=== PATIENT | female | born 1945 | race American Indian/Alaskan Native ===

== ENCOUNTER 2020-05-26 14:53 | Inpatient (IN) | payer MEDICARE ==
[2020-05-26] MEDS ORDERED: MELATONIN 5 MG TAB PO PRN (15:59)
[2020-05-26 21:08] LABS: Basophils % (Auto) 0.2 % (0.0-1.8); Hematocrit 43.4 % (30.3-42.9); Hemoglobin 15.1 gm/dl (10.1-14.3); Lymphocytes # (Auto) 2.5 K/mm3 (1.2-5.4); Lymphocytes % (Auto) 31.4 % (13.4-35.0); Mean Corpuscular HGB Conc 35 % (30-34); Mean Corpuscular Volume 93 fl (79-97); Monocytes # (Auto) 0.5 K/mm3 (0.0-0.8); Monocytes % (Auto) 6.3 % (0.0-7.3); Platelet Count 278 K/mm3 (140-440); Red Blood Count 4.67 M/mm3 (3.65-5.03); Red Cell Distribution Width 13.3 % (13.2-15.2)
[2020-05-26] MEDS: traZODone 50 MG TAB PO SCH (21:25)
[2020-05-26] MEDS: OMEGA-3 FATTY ACIDS/FISH OIL 1 GRAM CAP PO SCH ×2 (21:25)
[2020-05-26 21:29] LABS: Alanine Aminotransferase 15 units/L (7-56); Albumin 3.9 g/dL (3.9-5); Blood Urea Nitrogen 10 mg/dL (7-17); Calcium 9.6 mg/dL (8.4-10.2); Chol/HDL Ratio 2.17 %; HDL Cholesterol 62 mg/dL (40-59); Hemolysis Index 2; LDL Cholesterol,Direct 69 mg/dL (50-130)
[2020-05-26 21:43] LABS: BUN/Creatinine Ratio 17
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
[2020-05-27] MEDS ORDERED: ALPRAZOLAM 0.25 MG PO PRN (07:41)
[2020-05-27] MEDS ORDERED: DONEPEZIL HCL 10 MG PO SCH (10:00)
[2020-05-27] MEDS ORDERED: ALPRAZolam 0.25 MG TAB PO PRN (10:00)
[2020-05-27] MEDS ORDERED: MEMANTINE HCL 10 MG PO SCH (10:00)
[2020-05-27] MEDS ORDERED: FERROUS SULFATE 324 MG PO SCH (10:00)
[2020-05-27] MEDS ORDERED: LEVOTHYROXINE SODIUM 50 MCG PO SCH (10:00)
[2020-05-27] MEDS ORDERED: NON-FORMULARY EACH (Escitalopram 10 MG) PO SCH (10:00)
[2020-05-27] MEDS ORDERED: DEPAKOTE 250 MG PO SCH (10:00)
[2020-05-27] MEDS ORDERED: NON-FORMULARY EACH (Losartan Potassium 50 MG) PO SCH (10:00)
[2020-05-27] MEDS ORDERED: GLYBURIDE PO SCH (10:00)
[2020-05-27] MEDS: LOSARTAN 50 MG TAB PO SCH (11:05)
[2020-05-27] MEDS: OMEGA-3 FATTY ACIDS/FISH OIL 1 GRAM CAP PO SCH ×2 (11:06→21:12)
[2020-05-27] MEDS: MEMANTINE 10 MG TAB PO SCH ×2 (11:06→21:14)
[2020-05-27] MEDS: FERROUS SULFATE 325 MG TAB PO SCH (11:06)
[2020-05-27] MEDS: DIVALPROEX DR 250 MG TAB PO SCH ×2 (11:06→21:13)
[2020-05-27] MEDS: LEVOTHYROXINE 50 MCG TAB PO SCH (11:09)
[2020-05-27] MEDS ORDERED: ESCITALOPRAM 10 MG TAB PO SCH (12:00)
[2020-05-27] MEDS: QUEtiapine 25 MG TAB PO SCH ×2 (12:15→21:14)
[2020-05-27] MEDS: DONEPEZIL 10 MG TAB PO SCH (12:24)
[2020-05-27] MEDS ORDERED: glyBURIDE 5 MG TAB PO ONE (12:30)
--- NOTE | 2020-05-27 16:11 | Consultation ---
History of Present Illness - Reason for Consult Consult date: 05/27/20 Medical management Requesting physician: PEYTON HUITRON - History of Present Illness This 74-year-old female with vascular dementia, DM, HTN, hypothyroidism, HLD who was admitted to [facility] psych from [facility] for dementia with behavioral disturbances. We were consulted for medical management during inpatient stay. Patient denies any chest pain, fevers, hemoptysis, fatigue, re cent weight loss, shortness of breath, night sweats, exposure to any sick contacts or known exposure to COVID-19. Past History Past Medical History: diabetes, hypertension, hyperlipidemia, hypothyroidism, other (Vascular dementia) Social history: full code. denies: smoking, alcohol abuse, prescription drug abuse, IV drug use Family history: hypertension Medications and Allergies Allergies Allergy/AdvReac Type Severity Reaction Status Date / Time No Known Drug Allergies Allergy Unknown Verified 05/26/20 21:18 Home Medications Medication Instructions Recorded Confirmed Last Taken Type ALPRAZolam 0.25 mg PO BID PRN 05/27/20 05/27/20 Unknown History Aleve 220 mg PO PRN PRN 05/27/20 05/27/[address] 150 mg PO BID 05/27/20 05/27/20 Unknown History Donepezil HCl 10 mg PO DAILY 05/27/20 05/27/20 Unknown History Escitalopram 10 mg PO DAILY 05/27/20 05/27/20 Unknown History Ferrous Sulfate 324 MG 324 mg PO DAILY 05/27/20 05/27/20 Unknown History Glyburide 10 mg PO BID 05/27/20 05/27/20 Unknown History Insulin Glargine [Lantus VIAL] 8 unit SQ HS 05/27/20 05/27/20 Unknown History Levothyroxine Sodium 75 mcg PO DAILY 05/27/20 05/27/20 Unknown History Losartan Potassium 50 mg PO DAILY 05/27/20 05/27/20 Unknown History Memantine HCl 10 mg PO BID 05/27/20 05/27/20 Unknown History Mirtazapine 7.5 mg PO HS 05/27/20 05/27/20 Unknown History Multivitamin 1 tab PO DAILY 05/27/20 05/27/20 Unknown History Pravastatin Sodium 20 mg PO QHS 05/27/20 05/27/20 Unknown History Active Meds: Active Medications Alprazolam (Xanax) 0.25 mg PO BID PRN PRN Reason: Anxiety Divalproex Sodium (Depakote Dr) 250 mg PO BID [facility] Last Admin: 05/27/20 11:06 Dose: 250 mg Documented by: Donepezil HCl (Aricept) 10 mg PO DAILY [facility] Last Admin: 05/27/20 12:24 Dose: 10 mg Documented by: Ferrous Sulfate (Feosol) 325 mg PO DAILY [facility] Last Admin: 05/27/20 11:06 Dose: 325 mg Documented by: Fish Oil (Fish Oil) 2,000 mg PO BID [facility] Last Admin: 05/27/20 11:06 Dose: 2,000 mg Documented by: Glyburide (Diabeta) 10 mg PO BIDDIAB [facility] Insulin Glargine (Lantus) 8 units SUB-Q HS [facility] Levothyroxine Sodium (Synthroid) 50 mcg PO DAILY@0600 [facility] Last Admin: 05/27/20 11:09 Dose: 50 mcg Documented by: Losartan Potassium (Cozaar) 50 mg PO QDAY [facility] Last Admin: 05/27/20 11:05 Dose: 50 mg Documented by: Melatonin (Melatonin) 5 mg PO QHS PRN PRN Reason: Sleep Last Admin: 05/26/20 21:25 Dose: 5 mg Documented by: Memantine (Memantine) 10 mg PO Q12HR [facility] Last Admin: 05/27/20 11:06 Dose: 10 mg Documented by: Miscellaneous Medication (Pravastatin Sodium) 20 mg PO QHS [facility] Miscellaneous Medication (Multivitamin) 1 tab PO DAILY [facility] Quetiapine Fumarate (Seroquel) 50 mg PO BID [facility] Last Admin: 05/27/20 12:15 Dose: 50 mg Documented by: Trazodone HCl (Desyrel) 50 mg PO QHS [facility] Last Admin: 05/26/20 21:25 Dose: 50 mg Documented by: Review of Systems Constitutional: no weight loss, no weight gain, no fever, no chills, no sweats, no night sweats, no anorexia, no fatigue, no weakness Ears, nose, mouth and throat: decreased hearing, no ear pain, no ear discharge, no tinnitis, no nose pain, no nasal congestion, no nasal discharge, no sinus pressure, no sinus pain, no epistaxis, no post-nasal drip, no headache Cardiovascular: high blood pressure, no chest pain, no orthopnea, no palpitations, no rapid/irregular heart beat, no edema, no syncope, no lightheadedness, no shortness of breath, no leg edema Respiratory: no cough, no cough with sputum, no excessive sputum, no hemoptysis, no shortness of breath, no dyspnea on exertion, no congestion Gastrointestinal: no abdominal pain, no nausea, no vomiting, no diarrhea, no constipation, no change in bowel habits, no hematemesis, no BRBPR, no hematochezia Genitourinary Female: no dyspareunia, no pelvic pain, no flank pain Menstruation: postmenopausal Rectal: no pain, no incontinence Musculoskeletal: no neck stiffness, no neck pain, no shooting arm pain, no arm numbness/tingling, no low back pain, no shooting leg pain, no leg numbness/t ingling, no redness of joints Integumentary: no rash, no pruritis, no sores, no wounds Neurological: no head injury, no transient paralysis, no paralysis, no weakness, no parathesias, no numbness, no tingling, no seizures, no vertigo, no headaches Psychiatric: no anxiety, no memory loss, no sleep disturbances, no disorienta tion, no confusion Endocrine: no cold intolerance, no heat intolerance, no excessive thirst, no polydipsia, no high blood sugars, no low blood sugars Hematologic/Lymphatic: no easy bruising, no easy bleeding, no lymphadenopathy Allergic/Immunologic: no urticaria, no seasonal allergies Exam - Constitutional Vitals: Temp Pulse Resp BP Pulse Ox 98.8 F 78 18 116/65 96 05/27/20 09:03 05/27/20 11:05 05/27/20 09:03 05/27/20 11:05 05/27/20 09:03 General appearance: Present: no acute distress - EENT ENT: hearing decreased - Neck Neck: Present: normal ROM - Respiratory Respiratory effort: normal Respiratory: bilateral: CTA - Cardiovascular Rhythm: regular Heart Sounds: Present: S1 & S2. Absent: systolic murmur, diastolic murmur - Extremities Extremities: no ischemia, pulses intact, pulses symmetrical, No edema, normal temperature, normal color Peripheral Pulses: within normal limits - Abdominal General gastrointestinal: Present: soft, non-tender, normal bowel sounds - Integumentary Integumentary: Present: clear, warm, dry - Musculoskeletal Musculoskeletal: strength equal bilaterally - Psychiatric Psychiatric: cooperative - Neurologic Neurologic: CNII-XII intact, no focal deficits, no gait normal (Uses wheelchair) Results - Labs CBC & Chem 7: 05/26/20 20:52 05/26/20 20:52 Labs: Abnormal lab results 05/26/20 05/26/20 05/26/20 Range/Units 20:52 20:52 20:52 Hgb 15.1 H (10.1-14.3) gm/dl Hct 43.4 H (30.3-42.9) % MCHC 35 H (30-34) % Chloride 97.6 L (98-107) mmol/L Glucose 166 H (65-100) mg/dL POC Glucose (70-105) Hemoglobin A1c 8.1 H (4-6) % Alkaline Phosphatase 142 H (35-129) units/L HDL Cholesterol 62 H (40-59) mg/dL 05/26/20 05/27/20 05/27/20 Range/Units 21:29 06:40 11:53 Hgb (10.1-14.3) gm/dl Hct (30.3-42.9) % MCHC (30-34) % Chloride (98-107) mmol/L Glucose (65-100) mg/dL POC Glucose 165 H 152 H 186 H (70-105) Hemoglobin A1c (4-6) % Alkaline Phosphatase (35-129) units/L HDL Cholesterol (40-59) mg/dL 05/27/20 Range/Units 16:21 Hgb (10.1-14.3) gm/dl Hct (30.3-42.9) % MCHC (30-34) % Chloride (98-107) mmol/L Glucose (65-100) mg/dL POC Glucose 156 H (70-105) Hemoglobin A1c (4-6) % Alkaline Phosphatase (35-129) units/L HDL Cholesterol (40-59) mg/dL Assessment and Plan - Patient Problems (1) Dementia with behavioral disturbance Current Visit: Yes Status: Acute Qualifiers: Dementia type: vascular dementia Qualified Code(s): F01.51 - Vascular dementia with behavioral disturbance Plan to address problem: - Management per primary (2) Hypothyroidism Current Visit: Yes Status: Chronic Plan to address problem: - Resume home Synthroid - 05/26 TSH 3.4 (3) HLD (hyperlipidemia) Current Visit: Yes Status: Chronic Plan to address problem: - Resumed home statin - 05/26 lipid panel: Triglyceride 81, cholesterol 135, LDL 61, HDL 62 (4) HTN (hypertension) Current Visit: Yes Status: Chronic Plan to address problem: - Resumed home Cozaar - Blood pressure monitoring per protocol - Labetalol PRN (5) Diabetes Current Visit: Yes Status: Chronic Plan to address problem: -05/26 hemoglobin A1c 8.1 - SSI - Accu-Cheks AC at bedtime - Hypoglycemia protocol (6) DVT prophylaxis Current Visit: Yes Status: Acute Plan to address problem: - SCDs to BLE while in bed
[2020-05-27] MEDS: glyBURIDE 5 MG TAB PO SCH (18:04)
[2020-05-27] MEDS: traZODone 50 MG TAB PO SCH (21:13)
[2020-05-27] MEDS: PRAVASTATIN 20 MG TAB PO SCH (21:27)
[2020-05-27] MEDS: INSULIN GLARGINE 100 UNITS/ML SUB-Q SCH (21:44)
[2020-05-27] MEDS ORDERED: PRAVASTATIN SODIUM 20 MG PO SCH (22:00)
[2020-05-28] MEDS: LEVOTHYROXINE 50 MCG TAB PO SCH (06:36)
--- NOTE | 2020-05-28 07:46 | Progress Note ---
Subjective Date of service: 05/28/20 Principal diagnosis: Dementia with Behv distrubance Subjective Comment: Psych Nurse Note: 1722 Pt. a/o x 1-2, confused, tearful, delusional thinking that she was in a car accident may have injured someone. Asking the same question over and over. pt. reassured repeatedly. Will continue to monitor. Psych Progress HPI Patient seen this AM, reports shes good, does not remember who I was from yesterday. Patient says she slept good asked why she is refusing meal yesterday evening, pt reports she sometimes does that, also this morning she really doesn't have any appetite but she know she has to eat something. Reason for continuing inpatient: Hx of dementia with disturbances, mood irritablity and in stability. Will increase seroquil to 100mg BID today and continue to observe for tolerance and adverse effects. REVIEW OF SYSTEMS ROS cannot be reliably obtained from the patient due to her confusion and somnolence. MENTAL STATUS EXAMINATION General Appearance and Behavior: Age appropriate, good hygiene, wearing appropriate clothes, good eye contact, cooperative polite with questioning. Cooperation: Participating/engaged Psychomotor Behavior: unremarkable and within normal limits Mood: Good Affect and affective range: congruent with mood Thought Process: Fluent/Logical Thought Content: Poverty Speech: Normal volume, Regular rate and rhythm Intellectual Functioning: Average Suicidal Ideation: n/a Homicidal Ideation: n/a Impulse Control: Impaired Insight and Judgment: Limited insight and judgment Memory: Normal Attention: Normal Orientation: Alert Assessment and Plan - Psychiatric problem (1) Dementia with behavioral disturbance Current Visit: Yes Status: Acute Seroquil dose increase Patient will be admitted for inpatient psychiatric evaluation, medication adjustment and close monitoring The patient's behavior, mood, sleep and appetite will be closely monitored. Patient will be enrolled in individual and group therapeutic sessions and encouraged to attend. Patient will be provided with a safe and structured environment. Patient's physical health needs will be addressed by the Hospitalist. Hospitalist Consulted Labs including CBC, CMP, Lipid profile and Hemoglobin A1C ordered Social Assessment will be completed and the [facility] will work with patient and family to ensure a suitable and safe disposition Medication adjustment will be made as clinically indicated Usual Wellness Yarsanism/Preservation: - Start Trazodone 50 mg po QHS & 50 mg po QHS PRN between 10 PM & 2 AM for insomnia - Start Melatonin 5 mg po QHS to promote circadian rhythm - Start [place]-3 for brain health, reduce impulsivity, and as adjunctive treatment for mood disorder, continue upon discharge given overall benefits. - Start B1 prophylaxis with 200 mg po for 5 days The patient agreed on the treatment plan, understood the risk, benefit, alternative treatment, potential consequence of no treatment, and gave informed consent. Initial Certification Inpatient psych services: I certify that the inpatient psychiatric services are required for treatment that could reasonably be expected to improve the patient's condition. Estimated days: 5 Post hospital care: primary care provider, psychiatric provider Assessment and Plan - Patient Problems (1) Dementia with behavioral disturbance Current Visit: Yes Status: Acute Qualifiers: Dementia type: vascular dementia Qualified Code(s): F01.51 - Vascular dementia with behavioral disturbance Medications and Allergies Allergies Allergy/AdvReac Type Severity Reaction Status Date / Time No Known Drug Allergies Allergy Unknown Verified 05/26/20 21:18 Home Medications Medication Instructions Recorded Confirmed Last Taken Type ALPRAZolam 0.25 mg PO BID PRN 05/27/20 05/27/20 Unknown History Aleve 220 mg PO PRN PRN 05/27/20 05/27/[address] 150 mg PO BID 05/27/20 05/27/20 Unknown History Donepezil HCl 10 mg PO DAILY 05/27/20 05/27/20 Unknown History Escitalopram 10 mg PO DAILY 05/27/20 05/27/20 Unknown History Ferrous Sulfate 324 MG 324 mg PO DAILY 05/27/20 05/27/20 Unknown History Glyburide 10 mg PO BID 05/27/20 05/27/20 Unknown History Insulin Glargine [Lantus VIAL] 8 unit SQ HS 05/27/20 05/27/20 Unknown History Levothyroxine Sodium 75 mcg PO DAILY 05/27/20 05/27/20 Unknown History Losartan Potassium 50 mg PO DAILY 05/27/20 05/27/20 Unknown History Memantine HCl 10 mg PO BID 05/27/20 05/27/20 Unknown History Mirtazapine 7.5 mg PO HS 05/27/20 05/27/20 Unknown History Multivitamin 1 tab PO DAILY 05/27/20 05/27/20 Unknown History Pravastatin Sodium 20 mg PO QHS 05/27/20 05/27/20 Unknown History Active Meds: Active Medications Alprazolam (Xanax) 0.25 mg PO BID PRN PRN Reason: Anxiety Divalproex Sodium (Depakote Dr) 250 mg PO BID [facility] Last Admin: 05/27/20 21:13 Dose: 250 mg Documented by: Donepezil HCl (Aricept) 10 mg PO DAILY [facility] Last Admin: 05/27/20 12:24 Dose: 10 mg Documented by: Ferrous Sulfate (Feosol) 325 mg PO DAILY [facility] Last Admin: 05/27/20 11:06 Dose: 325 mg Documented by: Fish Oil (Fish Oil) 2,000 mg PO BID [facility] Last Admin: 05/27/20 21:12 Dose: 2,000 mg Documented by: Glyburide (Diabeta) 10 mg PO BIDDIAB [facility] Last Admin: 05/27/20 18:04 Dose: 10 mg Documented by: Insulin Glargine (Lantus) 8 units SUB-Q HS [facility] Last Admin: 05/27/20 21:44 Dose: 8 units Documented by: Levothyroxine Sodium (Synthroid) 50 mcg PO DAILY@0600 [facility] Last Admin: 05/28/20 06:36 Dose: 50 mcg Documented by: Losartan Potassium (Cozaar) 50 mg PO QDAY [facility] Last Admin: 05/27/20 11:05 Dose: 50 mg Documented by: Melatonin (Melatonin) 5 mg PO QHS PRN PRN Reason: Sleep Last Admin: 05/26/20 21:25 Dose: 5 mg Documented by: Memantine (Memantine) 10 mg PO Q12HR [facility] Last Admin: 05/27/20 21:14 Dose: 10 mg Documented by: Multivitamins (Theragran Tab) 1 each PO DAILY [facility] Pravastatin Sodium (Pravachol) 20 mg PO QHS [facility] Last Admin: 05/27/20 21:27 Dose: 20 mg Documented by: Quetiapine Fumarate (Seroquel) 50 mg PO BID [facility] Last Admin: 05/27/20 21:14 Dose: 50 mg Documented by: Trazodone HCl (Desyrel) 50 mg PO QHS [facility] Last Admin: 05/27/20 21:13 Dose: 50 mg Documented by: Results - Results Labs/Vitals: Laboratory Last Values WBC 8.0 K/mm3 (4.5-11.0) 05/26/20 20:52 RBC 4.67 M/mm3 (3.65-5.03) 05/26/20 20:52 Hgb 15.1 gm/dl (10.1-14.3) H 05/26/20 20:52 Hct 43.4 % (30.3-42.9) H 05/26/20 20:52 MCV 93 fl (79-97) 05/26/20 20:52 MCH 32 pg (28-32) 05/26/20 20:52 MCHC 35 % (30-34) H 05/26/20 20:52 RDW 13.3 % (13.2-15.2) 05/26/20 20:52 Plt Count 278 K/mm3 (140-440) 05/26/20 20:52 Lymph % (Auto) 31.4 % (13.4-35.0) 05/26/20 20:52 [place] % (Auto) 6.3 % (0.0-7.3) 05/26/20 20:52 Eos % (Auto) 0.0 % (0.0-4.3) 05/26/20 20:52 Baso % (Auto) 0.2 % (0.0-1.8) 05/26/20 20:52 Lymph # 2.5 K/mm3 (1.2-5.4) 05/26/20 20:52 [place] # 0.5 K/mm3 (0.0-0.8) 05/26/20 20:52 Eos # 0.0 K/mm3 (0.0-0.4) 05/26/20 20:52 Baso # 0.0 K/mm3 (0.0-0.1) 05/26/20 20:52 Seg Neutrophils % 62.1 % (40.0-70.0) 05/26/20 20:52 Seg Neutrophils # 5.0 K/mm3 (1.8-7.7) 05/26/20 20:52 Sodium 139 mmol/L (137-145) 05/26/20 20:52 Potassium 3.6 mmol/L (3.6-5.0) 05/26/20 20:52 Chloride 97.6 mmol/L (98-107) L 05/26/20 20:52 Carbon Dioxide 23 mmol/L (22-30) 05/26/20 20:52 Anion Gap 22 mmol/L 05/26/20 20:52 BUN 10 mg/dL (7-17) 05/26/20 20:52 Creatinine 0.6 mg/dL (0.6-1.2) 05/26/20 20:52 Estimated GFR > 60 ml/min 05/26/20 20:52 BUN/Creatinine Ratio 17 % 05/26/20 20:52 Glucose 166 mg/dL (65-100) H 05/26/20 20:52 POC Glucose 104 (70-105) 05/28/20 04:27 Hemoglobin A1c 8.1 % (4-6) H 05/26/20 20:52 Calcium 9.6 mg/dL (8.4-10.2) 05/26/20 20:52 Total Bilirubin 0.60 mg/dL (0.1-1.2) 05/26/20 20:52 AST 27 units/L (5-40) 05/26/20 20:52 ALT 15 units/L (7-56) 05/26/20 20:52 Alkaline Phosphatase 142 units/L (35-129) H 05/26/20 20:52 Total Protein 6.9 g/dL (6.3-8.2) 05/26/20 20:52 Albumin 3.9 g/dL (3.9-5) 05/26/20 20:52 Albumin/Globulin Ratio 1.3 % 05/26/20 20:52 Triglycerides 81 mg/dL (2-149) 05/26/20 20:52 Cholesterol 135 mg/dL (50-199) 05/26/20 20:52 LDL Cholesterol Direct 69 mg/dL (50-130) 05/26/20 20:52 HDL Cholesterol 62 mg/dL (40-59) H 05/26/20 20:52 Cholesterol/HDL Ratio 2.17 % 05/26/20 20:52 TSH 3.470 mlU/mL (0.270-4.200) 05/26/20 20:52 Last Vital Signs Temp 98.5 F 05/27/20 22:00 Pulse 67 05/27/20 22:00 Resp 20 05/27/20 22:00 BP 132/72 05/27/20 22:00 Pulse Ox 95 05/27/20 22:00
[2020-05-28] MEDS ORDERED: QUEtiapine 25 MG TAB PO SCH (08:28)
[2020-05-28] MEDS ORDERED: MULTIVITAMIN PO SCH (10:00)
[2020-05-28] MEDS: glyBURIDE 5 MG TAB PO SCH ×2 (10:55→16:12)
[2020-05-28] MEDS: FERROUS SULFATE 325 MG TAB PO SCH (10:57)
[2020-05-28] MEDS: DIVALPROEX DR 250 MG TAB PO SCH (10:57)
[2020-05-28] MEDS: QUEtiapine 100 MG TAB PO SCH ×2 (10:57→21:01)
[2020-05-28] MEDS: DONEPEZIL 10 MG TAB PO SCH (10:58)
[2020-05-28] MEDS: OMEGA-3 FATTY ACIDS/FISH OIL 1 GRAM CAP PO SCH ×2 (10:58→21:01)
[2020-05-28] MEDS: LOSARTAN 50 MG TAB PO SCH (10:58)
[2020-05-28] MEDS: MEMANTINE 10 MG TAB PO SCH ×2 (10:59→21:01)
[2020-05-28] MEDS: MULTIVITAMINS ,THERAPEUTIC TAB PO SCH (10:59)
[2020-05-28] MEDS: traZODone 50 MG TAB PO SCH (21:01)
[2020-05-28] MEDS: VALPROIC ACID 250 MG/5 ML ORAL LIQD PO SCH (21:01)
[2020-05-28] MEDS: INSULIN GLARGINE 100 UNITS/ML SUB-Q SCH (21:03)
[2020-05-28] MEDS: PRAVASTATIN 20 MG TAB PO SCH (21:03)
[2020-05-29] MEDS: LEVOTHYROXINE 50 MCG TAB PO SCH (06:29)
--- NOTE | 2020-05-29 08:04 | Progress Note ---
Subjective Date of service: 05/29/20 Principal diagnosis: Dementia with Behv distrubance Subjective Comment: Psych Nurse Note: 1705 Pt. irritable, angry, looking for her shoes so she could leave. Staff reassuring pt, with slight relief. Music therapy provided, and pt. is relaxing and she dancing which in the Michelle chair. Will continue to reassure and monitor. Psych Progress HPI Patient seen this AM, in activity room sitting in Michelle chair. Report feeling great this AM, says she is trying to remember me. Patient reports not thinking of doing much today, says she feels happy, and likes dancing. Reason for continuing inpatient: Persistent mood irritability, anger and behv disturbance. Seroquil increased to 100mg BID yesterday and will continue to observe for tolerance and adverse effects. REVIEW OF SYSTEMS ROS cannot be reliably obtained from the patient due to her confusion and somnolence. MENTAL STATUS EXAMINATION General Appearance and Behavior: Age appropriate, good hygiene, wearing appropriate clothes, good eye contact, cooperative polite with questioning. Cooperation: Participating/engaged Psychomotor Behavior: unremarkable and within normal limits Mood: Good Affect and affective range: congruent with mood Thought Process: Fluent/Logical Thought Content: Poverty Speech: Normal volume, Regular rate and rhythm Intellectual Functioning: Average Suicidal Ideation: n/a Homicidal Ideation: n/a Impulse Control: Impaired Insight and Judgment: Limited insight and judgment Memory: Normal Attention: Normal Orientation: Alert Assessment and Plan - Psychiatric problem (1) Dementia with behavioral disturbance Current Visit: Yes Status: Acute Seroquil dose increase Patient will be admitted for inpatient psychiatric evaluation, medication adjustment and close monitoring The patient's behavior, mood, sleep and appetite will be closely monitored. Patient will be enrolled in individual and group therapeutic sessions and encouraged to attend. Patient will be provided with a safe and structured environment. Patient's physical health needs will be addressed by the Hospitalist. Ho spitalist Consulted Labs including CBC, CMP, Lipid profile and Hemoglobin A1C ordered Social Assessment will be completed and the [facility] will work with patient and family to ensure a suitable and safe disposition Medication adjustment will be made as clinically indicated Usual Wellness Episcopal/Preservation: - Start Trazodone 50 mg po QHS & 50 mg po QHS PRN between 10 PM & 2 AM for insomnia - Start Melatonin 5 mg po QHS to promote circadian rhythm - Start [place]-3 for brain health, reduce impulsivity, and as adjunctive treatment for mood disorder, continue upon discharge given overall benefits. - Start B1 prophylaxis with 200 mg po for 5 days The patient agreed on the treatment plan, understood the risk, benefit, alternative treatment, potential consequence of no treatment, and gave informed consent. Initial Certification Inpatient psych services: I certify that the inpatient psychiatric services are required for treatment that could reasonably be expected to improve the patient's condition. Estimated days: 1 Post hospital care: primary care provider, psychiatric provider Assessment and Plan - Patient Problems (1) Dementia with behavioral disturbance Current Visit: Yes Status: Acute Qualifiers: Dementia type: vascular dementia Qualified Code(s): F01.51 - Vascular dementia with behavioral disturbance Medications and Allergies Allergies Allergy/AdvReac Type Severity Reaction Status Date / Time No Known Drug Allergies Allergy Unknown Verified 05/26/20 21:18 Home Medications Medication Instructions Recorded Confirmed Last Taken Type ALPRAZolam 0.25 mg PO BID PRN 05/27/20 05/27/20 Unknown History Aleve 220 mg PO PRN PRN 05/27/20 05/27/[address] 150 mg PO BID 05/27/20 05/27/20 Unknown History Donepezil HCl 10 mg PO DAILY 05/27/20 05/27/20 Unknown History Escitalopram 10 mg PO DAILY 05/27/20 05/27/20 Unknown History Ferrous Sulfate 324 MG 324 mg PO DAILY 05/27/20 05/27/20 Unknown History Glyburide 10 mg PO BID 05/27/20 05/27/20 Unknown History Insulin Glargine [Lantus VIAL] 8 unit SQ 05/27/20 05/27/20 Unknown History Levothyroxine Sodium 75 mcg PO DAILY 05/27/20 05/27/20 Unknown History Losartan Potassium 50 mg PO DAILY 05/27/20 05/27/20 Unknown History Memantine HCl 10 mg PO BID 05/27/20 05/27/20 Unknown History Mirtazapine 7.5 mg PO HS 05/27/20 05/27/20 Unknown History Multivitamin 1 tab PO DAILY 05/27/20 05/27/20 Unknown History Pravastatin Sodium 20 mg PO QHS 05/27/20 05/27/20 Unknown History Active Meds: Active Medications Alprazolam (Xanax) 0.25 mg PO BID PRN PRN Reason: Anxiety Donepezil HCl (Aricept) 10 mg PO DAILY [facility] Last Admin: 05/28/20 10:58 Dose: 10 mg Documented by: Ferrous Sulfate (Feosol) 325 mg PO DAILY [facility] Last Admin: 05/28/20 10:57 Dose: 325 mg Documented by: Fish Oil (Fish Oil) 2,000 mg PO BID [facility] Last Admin: 05/28/20 21:01 Dose: 2,000 mg Documented by: Glyburide (Diabeta) 10 mg PO BIDDIAB [facility] Last Admin: 05/28/20 16:12 Dose: 10 mg Documented by: Insulin Glargine (Lantus) 8 units SUB-Q HS [facility] Last Admin: 05/28/20 21:03 Dose: Not Given Documented by: Levothyroxine Sodium (Synthroid) 50 mcg PO DAILY@0600 [facility] Last Admin: 05/29/20 06:29 Dose: 50 mcg Documented by: Losartan Potassium (Cozaar) 50 mg PO QDAY [facility] Last Admin: 05/28/20 10:58 Dose: 50 mg Documented by: Melatonin (Melatonin) 5 mg PO QHS PRN PRN Reason: Sleep Last Admin: 05/26/20 21:25 Dose: 5 mg Documented by: Memantine (Memantine) 10 mg PO Q12HR [facility] Last Admin: 05/28/20 21:01 Dose: 10 mg Documented by: Multivitamins (Theragran Tab) 1 each PO DAILY [facility] Last Admin: 05/28/20 10:59 Dose: 1 each Documented by: Pravastatin Sodium (Pravachol) 20 mg PO QHS [facility] Last Admin: 05/28/20 21:03 Dose: 20 mg Documented by: Quetiapine Fumarate (Seroquel) 100 mg PO BID [facility] Last Admin: 05/28/20 21:01 Dose: 100 mg Documented by: Trazodone HCl (Desyrel) 50 mg PO QHS [facility] Last Admin: 05/28/20 21:01 Dose: 50 mg Documented by: Valproic Acid (Depakene Liq) 250 mg PO BID [facility] Last Admin: 05/28/20 21:01 Dose: 250 mg Documented by: Results - Results Labs/Vitals: Laboratory Last Values WBC 8.0 K/mm3 (4.5-11.0) 05/26/20 20:52 RBC 4.67 M/mm3 (3.65-5.03) 05/26/20 20:52 Hgb 15.1 gm/dl (10.1-14.3) H 05/26/20 20:52 Hct 43.4 % (30.3-42.9) H 05/26/20 20:52 MCV 93 fl (79-97) 05/26/20 20:52 MCH 32 pg (28-32) 05/26/20 20:52 MCHC 35 % (30-34) H 05/26/20 20:52 RDW 13.3 % (13.2-15.2) 05/26/20 20:52 Plt Count 278 K/mm3 (140-440) 05/26/20 20:52 Lymph % (Auto) 31.4 % (13.4-35.0) 05/26/20 20:52 [place] % (Auto) 6.3 % (0.0-7.3) 05/26/20 20:52 Eos % (Auto) 0.0 % (0.0-4.3) 05/26/20 20:52 Baso % (Auto) 0.2 % (0.0-1.8) 05/26/20 20:52 Lymph # 2.5 K/mm3 (1.2-5.4) 05/26/20 20:52 Sac # 0.5 K/mm3 (0.0-0.8) 05/26/20 20:52 Eos # 0.0 K/mm3 (0.0-0.4) 05/26/20 20:52 Baso # 0.0 K/mm3 (0.0-0.1) 05/26/20 20:52 Seg Neutrophils % 62.1 % (40.0-70.0) 05/26/20 20:52 Seg Neutrophils # 5.0 K/mm3 (1.8-7.7) 05/26/20 20:52 Sodium 139 mmol/L (137-145) 05/26/20 20:52 Potassium 3.6 mmol/L (3.6-5.0) 05/26/20 20:52 Chloride 97.6 mmol/L (98-107) L 05/26/20 20:52 Carbon Dioxide 23 mmol/L (22-30) 09/07/20 20:52 Anion Gap 22 mmol/L 05/26/20 20:52 BUN 10 mg/dL (7-17) 05/26/20 20:52 Creatinine 0.6 mg/dL (0.6-1.2) 05/26/20 20:52 Estimated GFR > 60 ml/min 05/26/20 20:52 BUN/Creatinine Ratio 17 % 05/26/20 20:52 Glucose 166 mg/dL (65-100) H 05/26/20 20:52 POC Glucose 126 (70-105) H 05/29/20 06:29 Hemoglobin A1c 8.1 % (4-6) H 05/26/20 20:52 Calcium 9.6 mg/dL (8.4-10.2) 05/26/20 20:52 Total Bilirubin 0.60 mg/dL (0.1-1.2) 05/26/20 20:52 AST 27 units/L (5-40) 05/26/20 20:52 ALT 15 units/L (7-56) 05/26/20 20:52 Alkaline Phosphatase 142 units/L (35-129) H 05/26/20 20:52 Total Protein 6.9 g/dL (6.3-8.2) 05/26/20 20:52 Albumin 3.9 g/dL (3.9-5) 05/26/20 20:52 Albumin/Globulin Ratio 1.3 % 05/26/20 20:52 Triglycerides 81 mg/dL (2-149) 05/26/20 20:52 Cholesterol 135 mg/dL (50-199) 05/26/20 20:52 LDL Cholesterol Direct 69 mg/dL (50-130) 05/26/20 20:52 HDL Cholesterol 62 mg/dL (40-59) H 05/26/20 20:52 Cholesterol/HDL Ratio 2.17 % 05/26/20 20:52 TSH 3.470 mlU/mL (0.270-4.200) 05/26/20 20:52 Last Vital Signs Temp 97.6 F 05/29/20 07:17 Pulse 65 05/29/20 07:17 Resp 18 05/29/20 07:17 BP 109/58 05/29/20 07:17 Pulse Ox 96 05/29/20 07:17
[2020-05-29] MEDS: MULTIVITAMINS ,THERAPEUTIC TAB PO SCH (09:06)
[2020-05-29] MEDS: QUEtiapine 100 MG TAB PO SCH ×2 (09:06→22:22)
[2020-05-29] MEDS: OMEGA-3 FATTY ACIDS/FISH OIL 1 GRAM CAP PO SCH ×2 (09:06→22:21)
[2020-05-29] MEDS: DONEPEZIL 10 MG TAB PO SCH (09:06)
[2020-05-29] MEDS: LOSARTAN 50 MG TAB PO SCH (09:07)
[2020-05-29] MEDS: glyBURIDE 5 MG TAB PO SCH ×2 (09:07→16:24)
[2020-05-29] MEDS: VALPROIC ACID 250 MG/5 ML ORAL LIQD PO SCH ×2 (09:07→22:21)
[2020-05-29] MEDS: MEMANTINE 10 MG TAB PO SCH ×2 (09:07→22:22)
[2020-05-29] MEDS: FERROUS SULFATE 325 MG TAB PO SCH (09:07)
--- NOTE | 2020-05-29 16:11 | Progress Note ---
Assessment and Plan - Patient Problems (1) Dementia with behavioral disturbance Current Visit: Yes Status: Acute Qualifiers: Dementia type: vascular dementia Qualified Code(s): F01.51 - Vascular dementia with behavioral disturbance Plan to address problem: - Management per primary (2) Hypothyroidism Current Visit: Yes Status: Chronic Plan to address problem: - Resume home Synthroid - 05/26 TSH 3.4 (3) HLD (hyperlipidemia) Current Visit: Yes Status: Chronic Plan to address problem: - Resumed home statin - 05/26 lipid panel: Triglyceride 81, cholesterol 135, LDL 61, HDL 62 (4) HTN (hypertension) Current Visit: Yes Status: Chronic Plan to address problem: - Resumed home Cozaar, dose decreased on 05/29 - Blood pressure monitoring per protocol (5) Diabetes Current Visit: Yes Status: Chronic Plan to address problem: - 05/26 Hbg A1C 8.1 - 05/29 increased Lantus 11 units at bedtime - DiaBeta BID - Accucheck ACHS - Hypoglycemia protocol (6) Malnutrition of moderate degree Current Visit: Yes Status: Acute Plan to address problem: - Will need supplemental feeds and nutrition referral at discharge - Added Nutritional supplement to meals (7) DVT prophylaxis Current Visit: Yes Status: Acute Plan to address problem: - SCDs to BLE while in bed History Interval history: This 74-year-old female with vascular dementia, DM, HTN, hypothyroidism, HLD who was admitted to [facility] for dementia with behavioral disturbances. We were consulted for medical management during inpatient stay. Hypoglycemia noted therefore Lantus increased to 11 units nightly. Continue to monitor and make changes as necessary. Hospitalist Physical - Constitutional Vitals: Temp Pulse Resp BP Pulse Ox 97.6 F 65 18 109/58 96 05/29/20 07:17 05/29/20 09:07 05/29/20 07:17 05/29/20 09:07 05/29/20 07:17 General appearance: Present: no acute distress - EENT Eyes: Present: PERRL ENT: hearing decreased - Neck Neck: Present: supple, normal ROM - Respiratory Respiratory effort: normal Respiratory: bilateral: CTA - Cardiovascular Rhythm: regular Heart Sounds: Present: S1 & S2. Absent: systolic murmur, diastolic murmur - Extremities Extremities: no ischemia, pulses intact, pulses symmetrical, No edema, normal temperature, normal color, Full ROM Peripheral Pulses: within normal limits - Abdominal General gastrointestinal: soft, non-tender, non-distended, normal bowel sounds - Integumentary Integumentary: Present: clear, warm, dry - Psychiatric Psychiatric: cooperative - Neurologic Neurologic: CNII-XII intact, no focal deficits, moves all extremities - Allied Health Allied health notes reviewed: nursing Results - Labs CBC & Chem 7: 05/26/20 20:52 05/26/20 20:52 Labs: Laboratory Last Values WBC 8.0 K/mm3 (4.5-11.0) 05/26/20 20:52 RBC 4.67 M/mm3 (3.65-5.03) 05/26/20 20:52 Hgb 15.1 gm/dl (10.1-14.3) H 05/26/20 20:52 Hct 43.4 % (30.3-42.9) H 05/26/20 20:52 MCV 93 fl (79-97) 05/26/20 20: MCH 32 pg (28-32) 05/26/20 20:52 MCHC 35 % (30-34) H 05/26/20 20:52 RDW 13.3 % (13.2-15.2) 05/26/20 20:52 Plt Count 278 K/mm3 (140-440) 05/26/20 20:52 Lymph % (Auto) 31.4 % (13.4-35.0) 05/26/20 20:52 [place] % (Auto) 6.3 % (0.0-7.3) 05/26/20 20:52 Eos % (Auto) 0.0 % (0.0-4.3) 05/26/20 20:52 Baso % (Auto) 0.2 % (0.0-1.8) 05/26/20 20:52 Lymph # 2.5 K/mm3 (1.2-5.4) 05/26/20 20:52 [place] # 0.5 K/mm3 (0.0-0.8) 05/26/20 20:52 Eos # 0.0 K/mm3 (0.0-0.4) 05/26/20 20:52 Baso # 0.0 K/mm3 (0.0-0.1) 05/26/20 20:52 Seg Neutrophils % 62.1 % (40.0-70.0) 05/26/20 20:52 Seg Neutrophils # 5.0 K/mm3 (1.8-7.7) 05/26/20 20:52 Sodium 139 mmol/L (137-145) 05/26/20 20:52 Potassium 3.6 mmol/L (3.6-5.0) 05/26/20 20:52 Chloride 97.6 mmol/L (98-107) L 05/26/20 20:52 Carbon Dioxide 23 mmol/L (22-30) 05/26/20 20:52 Anion Gap 22 mmol/L 05/26/20 20:52 BUN 10 mg/dL (7-17) 05/26/20 20:52 Creatinine 0.6 mg/dL (0.6-1.2) 05/26/20 20:52 Estimated GFR > 60 ml/min 05/26/20 20:52 BUN/Creatinine Ratio 17 % 05/26/20 20:52 Glucose 166 mg/dL (65-100) H 05/26/20 20:52 POC Glucose 216 (70-105) H 05/29/20 11:41 Hemoglobin A1c 8.1 % (4-6) H 05/26/20 20:52 Calcium 9.6 mg/dL (8.4-10.2) 05/26/20 20:52 Total Bilirubin 0.60 mg/dL (0.1-1.2) 05/26/20 20:52 AST 27 units/L (5-40) 05/26/20 20:52 ALT 15 units/L (7-56) 05/26/20 20:52 Alkaline Phosphatase 142 units/L (35-129) H 05/26/20 20:52 Total Protein 6.9 g/dL (6.3-8.2) 05/26/20 20:52 Albumin 3.9 g/dL (3.9-5) 05/26/20 20:52 Albumin/Globulin Ratio 1.3 % 05/26/20 20:52 Triglycerides 81 mg/dL (2-149) 05/26/20 20:52 Cholesterol 135 mg/dL (50-199) 05/26/20 20:52 LDL Cholesterol Direct 69 mg/dL (50-130) 05/26/20 20:52 HDL Cholesterol 62 mg/dL (40-59) H 05/26/20 20:52 Cholesterol/HDL Ratio 2.17 % 05/26/20 20:52 TSH 3.470 mlU/mL (0.270-4.200) 05/26/20 20:52 Fernandez/IV: Voiding Method Incontinent Active Medications - Current Medications Current Medications: Generic Name Dose Route Start Last Admin Trade Name Freq PRN Reason Stop Dose Admin Alprazolam 0.25 mg 05/27/20 10:00 Xanax PO BID PRN Anxiety Donepezil HCl 10 mg 05/27/20 12:00 05/29/20 09:06 Aricept PO 10 mg DAILY DONAL Administration Ferrous Sulfate 325 mg 05/27/20 10:00 05/29/20 09:07 Feosol PO 325 mg DAILY DONAL Administration Fish Oil 2,000 mg 05/26/20 16:00 05/29/20 09:06 Fish Oil PO 2,000 mg BID DONAL Administration Glyburide 10 mg 05/27/20 17:00 05/29/20 09:07 Diabeta PO 10 mg BIDDIAB [facility]AL Administration Insulin Glargine 11 units 05/29/20 16:11 Lantus SUB-Q HS DONAL Levothyroxine Sodium 50 mcg 05/27/20 09:00 05/29/20 06:29 Synthroid PO 50 mcg DAILY@0600 DONAL Administration Losartan Potassium 50 mg 05/27/20 10:00 05/29/20 09:07 Cozaar PO Not Given QDAY DONAL Melatonin 5 mg 05/26/20 15:59 05/26/20 21:25 Melatonin PO 5 mg QHS PRN Administration Sleep Memantine 10 mg 05/27/20 10:00 05/29/20 09:07 Memantine PO 10 mg Q12HR [facility]AL Administration Multivitamins 1 each 05/28/20 10:00 05/29/20 09:06 Theragran Tab PO 1 each DAILY [facility] Administration Pravastatin Sodium 20 mg 05/27/20 22:00 05/28/20 21:03 Pravachol PO 20 mg QHS [facility]AL Administration Quetiapine Fumarate 100 mg 05/28/20 10:00 05/29/20 09:06 Seroquel PO 100 mg BID [facility]AL Administration Trazodone HCl 50 mg 05/26/20 22:00 05/28/20 21:01 Desyrel PO 50 mg QHS [facility] Administration Valproic Acid 250 mg 05/28/20 22:00 05/29/20 09:07 Depakene Liq PO 250 mg BID [facility]AL Administration
[2020-05-29] MEDS ORDERED: LOSARTAN 50 MG TAB PO SCH (16:14)
[2020-05-29] MEDS: LOSARTAN 25 MG TAB PO SCH (17:15)
[2020-05-29] MEDS: traZODone 50 MG TAB PO SCH (22:22)
[2020-05-29] MEDS: PRAVASTATIN 20 MG TAB PO SCH (22:23)
[2020-05-30] MEDS: INSULIN GLARGINE 100 UNITS/ML SUB-Q SCH ×2 (08:00→21:51)
[2020-05-30] MEDS: OMEGA-3 FATTY ACIDS/FISH OIL 1 GRAM CAP PO SCH ×2 (09:10→21:32)
[2020-05-30] MEDS: LOSARTAN 25 MG TAB PO SCH (09:10)
[2020-05-30] MEDS: MEMANTINE 10 MG TAB PO SCH ×2 (09:10→21:32)
[2020-05-30] MEDS: QUEtiapine 100 MG TAB PO SCH ×2 (09:10→21:32)
[2020-05-30] MEDS: DONEPEZIL 10 MG TAB PO SCH (09:10)
[2020-05-30] MEDS: VALPROIC ACID 250 MG/5 ML ORAL LIQD PO SCH ×3 (09:11→20:35)
[2020-05-30] MEDS: MULTIVITAMINS ,THERAPEUTIC TAB PO SCH (09:11)
[2020-05-30] MEDS: FERROUS SULFATE 325 MG TAB PO SCH (09:11)
[2020-05-30] MEDS: glyBURIDE 5 MG TAB PO SCH ×2 (09:11→16:27)
--- NOTE | 2020-05-30 09:18 | Progress Note ---
Subjective Date of service: 05/30/20 Principal diagnosis: Dementia with Behv distrubance Subjective Comment: The patient's medical record was reviewed and the progress discussed with the nursing staff. The nurse note states the patient was irritable last evening. She was calling the [employer] names and taunting a peer. Patient denies si/hi/ah/vh. At times she tries to stand up and she is too weak. During my interview with the patient today, she is sitting in the dayroom. She is a/o x 1. She is snappy at some of the questions. She denies hallucinations. She also denies SI/HI. The patient describes her mood as okay. Reason for continued inpatient admission: The patient continues to be easily agitated, and aggressive. Will adjust medications and continue to stabilize in order to ensue a safe discharge. REVIEW OF SYSTEMS Constitutional: Negative for weight loss ENT: Negative for stridor Respiratory: Negative for cough or hemoptysis All other systems reviewed and are negative MENTAL STATUS EXAMINATION General Appearance; Dressed appropriately Behavior: Calm and cooperative. Poor eye contact Mood: Depressed and anxious Affect and affective range: sad Thought Process: Fluent/Logical Thought Content: Within reality Speech: Normal volume, Regular rate and rhythm Suicidal Ideation: SI Homicidal Ideation: Denies HI Hallucinations: Denies Delusions: None elicited Insight and Judgment: Limited Memory/Cognition: Normal Attention: Normal Orientation: Alert, oriented Assessment (1) Dementia w/Behavioral Disturbance Current Visit: Yes Status: Acute Treatment Plan Patient will be admitted for inpatient psychiatric evaluation, medication adjustment and close monitoring The patient's behavior, mood, sleep and appetite will be closely monitored. Patient will be enrolled in individual and group therapeutic sessions and encouraged to attend. Patient will be provided with a safe and structured environment. Patient's physical health needs will be addressed by the Hospitalist. Hospitalist Consulted Labs including CBC, CMP, Lipid profile and Hemoglobin A1C ordered Social Assessment will be completed and the Front End Developer will work with patient and family to ensure a suitable and safe disposition Medication adjustment will be made as clinically indicated Increase Depakote 250mg po TID Usual Wellness Jewish/Preservation: - Start Trazodone 50 mg po QHS & 50 mg po QHS PRN between 10 PM & 2 AM for insomnia - Start Melatonin 5 mg po QHS to promote circadian rhythm - Start [place]-3 for brain health, reduce impulsivity, and as adjunctive treatment for mood disorder, continue upon discharge given overall benefits. - Start B1 prophylaxis with 200 mg po for 5 days The patient agreed on the treatment plan, understood the risk, benefit, alternative treatment, potential consequence of no treatment, and gave informed consent. Estimated days: 3 Post hospital care: primary care provider, psychiatric provider Medications and Allergies Allergies Allergy/AdvReac Type Severity Reaction Status Date / Time No Known Drug Allergies Allergy Unknown Verified 05/26/20 21:18 Home Medications Medication Instructions Recorded Confirmed Last Taken Type ALPRAZolam 0.25 mg PO BID PRN 05/27/20 05/27/20 Unknown History Aleve 220 mg PO PRN PRN 05/27/20 05/27/[address] 150 mg PO BID 05/27/20 05/27/20 Unknown History Donepezil HCl 10 mg PO DAILY 05/27/20 05/27/20 Unknown History Escitalopram 10 mg PO DAILY 05/27/20 05/27/20 Unknown History Ferrous Sulfate 324 MG 324 mg PO DAILY 05/27/20 05/27/20 Unknown History Glyburide 10 mg PO BID 05/27/20 05/27/20 Unknown History Insulin Glargine [Lantus VIAL] 8 unit SQ 05/27/20 05/27/20 Unknown History Levothyroxine Sodium 75 mcg PO DAILY 05/27/20 05/27/20 Unknown History Losartan Potassium 50 mg PO DAILY 05/27/20 05/27/20 Unknown History Memantine HCl 10 mg PO BID 05/27/20 05/27/20 Unknown History Mirtazapine 7.5 mg PO HS 05/27/20 05/27/20 Unknown History Multivitamin 1 tab PO DAILY 05/27/20 05/27/20 Unknown History Pravastatin Sodium 20 mg PO QHS 05/27/20 05/27/20 Unknown History Active Meds: Active Medications Alprazolam (Xanax) 0.25 mg PO BID PRN PRN Reason: Anxiety Last Admin: 05/29/20 17:16 Dose: 0.25 mg Documented by: Donepezil HCl (Aricept) 10 mg PO DAILY [facility] Last Admin: 05/29/20 09:06 Dose: 10 mg Documented by: Ferrous Sulfate (Feosol) 325 mg PO DAILY [facility] Last Admin: 05/29/20 09:07 Dose: 325 mg Documented by: Fish Oil (Fish Oil) 2,000 mg PO BID [facility] Last Admin: 05/29/20 22:21 Dose: 2,000 mg Documented by: Glyburide (Diabeta) 10 mg PO BIDDIAB [facility] Last Admin: 05/29/20 16:24 Dose: 10 mg Documented by: Insulin Glargine (Lantus) 11 units SUB-Q HS [facility] Last Admin: 05/30/20 08:00 Dose: Not Given Documented by: Levothyroxine Sodium (Synthroid) 50 mcg PO DAILY@0600 [facility] Last Admin: 05/29/20 06:29 Dose: 50 mcg Documented by: Losartan Potassium (Cozaar) 25 mg PO QDAY [facility] Last Admin: 05/29/20 17:15 Dose: 25 mg Documented by: Melatonin (Melatonin) 5 mg PO QHS PRN PRN Reason: Sleep Last Admin: 05/26/20 21:25 Dose: 5 mg Documented by: Memantine (Memantine) 10 mg PO Q12HR [facility] Last Admin: 05/29/20 22:22 Dose: 10 mg Documented by: Multivitamins (Theragran Tab) 1 each PO DAILY [facility] Last Admin: 05/29/20 09:06 Dose: 1 each Documented by: Pravastatin Sodium (Pravachol) 20 mg PO QHS [facility] Last Admin: 05/29/20 22:23 Dose: 20 mg Documented by: Quetiapine Fumarate (Seroquel) 100 mg PO BID [facility] Last Admin: 05/29/20 22:22 Dose: 100 mg Documented by: Trazodone HCl (Desyrel) 50 mg PO QHS [facility] Last Admin: 05/29/20 22:22 Dose: 50 mg Documented by: Valproic Acid (Depakene Liq) 250 mg PO BID [facility] Last Admin: 05/29/20 22:21 Dose: 250 mg Documented by: Results - Results Labs/Vitals: Laboratory Last Values WBC 8.0 K/mm3 (4.5-11.0) 05/26/20 20:52 RBC 4.67 M/mm3 (3.65-5.03) 05/26/20 20:52 Hgb 15.1 gm/dl (10.1-14.3) H 05/26/20 20:52 Hct 43.4 % (30.3-42.9) H 05/26/20 20:52 MCV 93 fl (79-97) 05/26/20 20:52 MCH 32 pg (28-32) 05/26/20 20:52 MCHC 35 % (30-34) H 05/26/20 20:52 RDW 13.3 % (13.2-15.2) 05/26/20 20:52 Plt Count 278 K/mm3 (140-440) 05/26/20 20:52 Lymph % (Auto) 31.4 % (13.4-35.0) 05/26/20 20:52 [place] % (Auto) 6.3 % (0.0-7.3) 05/26/20 20:52 Eos % (Auto) 0.0 % (0.0-4.3) 05/26/20:52 Baso % (Auto) 0.2 % (0.0-1.8) 05/26/20 20:52 Lymph # 2.5 K/mm3 (1.2-5.4) 05/26/20 20:52 [place] # 0.5 K/mm3 (0.0-0.8) 05/26/20 20:52 Eos # 0.0 K/mm3 (0.0-0.4) 05/26/20 20:52 Baso # 0.0 K/mm3 (0.0-0.1) 05/26/20 20:52 Seg Neutrophils % 62.1 % (40.0-70.0) 05/26/20 20:52 Seg Neutrophils # 5.0 K/mm3 (1.8-7.7) 05/26/20 20:52 Sodium 139 mmol/L (137-145) 05/26/20 20:52 Potassium 3.6 mmol/L (3.6-5.0) 05/26/20 20:52 Chloride 97.6 mmol/L (98-107) L 05/26/20 20:52 Carbon Dioxide 23 mmol/L (22-30) 05/26/20 20:52 Anion Gap 22 mmol/L 05/26/20 20:52 BUN 10 mg/dL (7-17) 05/26/20 20:52 Creatinine 0.6 mg/dL (0.6-1.2) 05/26/20 20:52 Estimated GFR > 60 ml/min 05/26/20 20:52 BUN/Creatinine Ratio 17 % 05/26/20 20:52 Glucose 166 mg/dL (65-100) H 05/26/20 20:52 POC Glucose 114 (70-105) H 05/30/20 07:33 Hemoglobin A1c 8.1 % (4-6) H 05/26/20 20:52 Calcium 9.6 mg/dL (8.4-10.2) 05/26/20 20:52 Total Bilirubin 0.60 mg/dL (0.1-1.2) 05/26/20 20:52 AST 27 units/L (5-40) 05/26/20 20:52 ALT 15 units/L (7-56) 05/26/20 20:52 Alkaline Phosphatase 142 units/L (35-129) H 05/26/20 20:52 Total Protein 6.9 g/dL (6.3-8.2) 05/26/20 20:52 Albumin 3.9 g/dL (3.9-5) 05/26/20 20:52 Albumin/Globulin Ratio 1.3 % 05/26/20 20:52 Triglycerides 81 mg/dL (2-149) 05/26/20 20:52 Cholesterol 135 mg/dL (50-199) 05/26/20 20:52 LDL Cholesterol Direct 69 mg/dL (50-130) 05/26/20 20:52 HDL Cholesterol 62 mg/dL (40-59) H 05/26/20 20:52 Cholesterol/HDL Ratio 2.17 % 05/26/20 20:52 TSH 3.470 mlU/mL (0.270-4.200) 05/26/20 20:52 Valproic Acid 52.6 ug/mL (50-100) 05/29/20 18:52 Last Vital Signs Temp 98.3 F 05/30/20 08:20 Pulse 92 H 05/30/20 08:20 Resp 18 05/30/20 08:20 BP 101/64 05/30/20 08:20 Pulse Ox 97 05/30/20 08:20
[2020-05-30] MEDS: PRAVASTATIN 20 MG TAB PO SCH (21:32)
[2020-05-30] MEDS: traZODone 50 MG TAB PO SCH (21:32)
[2020-05-31] MEDS: LEVOTHYROXINE 50 MCG TAB PO SCH (06:43)
--- NOTE | 2020-05-31 08:21 | Progress Note ---
Subjective Date of service: 05/31/20 Principal diagnosis: Dementia with Behv distrubance Subjective Comment: The patient's medical record was reviewed and the progress discussed with the nursing staff. The nurse note states the patient became agitated when blow molding machine operator was helping her. The patient stated " I've been talking long before you". later, pt stated that she "has to go lay down". and tried to exit the group room. pt was redirected but pt became angry aeb yelling "damn it!". pt sat in the middle of the group room via wheelchair with her back facing staff and peers. During my interview with the patient today, she is lying down. She is asleep but easily arouses. She is confused. She says she feels "fine." The patient denies hallucinations of any kind. She also denies SI/HI Reason for continued inpatient admission: Although improving, the patient continues to have episodes where she is easily agitated. Will adjust medications and continue to stabilize in order to ensue a safe discharge. REVIEW OF SYSTEMS Constitutional: Negative for weight loss ENT: Negative for stridor Respiratory: Negative for cough or hemoptysis All other systems reviewed and are negative MENTAL STATUS EXAMINATION General Appearance; Dressed appropriately Behavior: Calm and cooperative. Poor eye contact Mood: Depressed and anxious Affect and affective range: sad Thought Process: Fluent/Logical Thought Content: Within reality Speech: Normal volume, Regular rate and rhythm Suicidal Ideation: SI Homicidal Ideation: Denies HI Hallucinations: Denies Delusions: None elicited Insight and Judgment: Limited Memory/Cognition: Normal Attention: Normal Orientation: Alert, oriented Assessment (1) Dementia w/Behavioral Disturbance Current Visit: Yes Status: Acute Treatment Plan Patient will be admitted for inpatient psychiatric evaluation, medication adjustment and close monitoring The patient's behavior, mood, sleep and appetite will be closely monitored. Patient will be enrolled in individual and group therapeutic sessions and encouraged to attend. Patient will be provided with a safe and structured environment. Patient's physical health needs will be addressed by the Hospitalist. Hospitalist Consulted Labs including CBC, CMP, Lipid profile and Hemoglobin A1C ordered OT/PT to eval and treat Social Assessment will be completed and the Cathode Maker will work with patient and family to ensure a suitable and safe disposition Medication adjustment will be made as clinically indicated Increase Depakote 250mg po TID yesterday No changes today Usual Wellness Baptism/Preservation: - Start Trazodone 50 mg po QHS & 50 mg po QHS PRN between 10 PM & 2 AM for insomnia - Start Melatonin 5 mg po QHS to promote circadian rhythm - Start [place]-3 for brain health, reduce impulsivity, and as adjunctive treatment for mood disorder, continue upon discharge given overall benefits. - Start B1 prophylaxis with 200 mg po for 5 days The patient agreed on the treatment plan, understood the risk, benefit, alternative treatment, potential consequence of no treatment, and gave informed consent. Estimated days: 2 Post hospital care: primary care provider, psychiatric provider Medications and Allergies Allergies Allergy/AdvReac Type Severity Reaction Status Date / Time No Known Drug Allergies Allergy Unknown Verified 05/26/20 21:18 Home Medications Medication Instructions Recorded Confirmed Last Taken Type ALPRAZolam 0.25 mg PO BID PRN 05/27/20 05/27/20 Unknown History Aleve 220 mg PO PRN PRN 05/27/20 05/27/[address] 150 mg PO BID 05/27/20 05/27/20 Unknown History Donepezil HCl 10 mg PO DAILY 05/27/20 05/27/20 Unknown History Escitalopram 10 mg PO DAILY 05/27/20 05/27/20 Unknown History Ferrous Sulfate 324 MG 324 mg PO DAILY 05/27/20 05/27/20 Unknown History Glyburide 10 mg PO BID 05/27/20 05/27/20 Unknown History Insulin Glargine [Lantus VIAL] 8 unit SQ HS 05/27/20 05/27/20 Unknown History Levothyroxine Sodium 75 mcg PO DAILY 05/27/20 05/27/20 Unknown History Losartan Potassium 50 mg PO DAILY 05/27/20 05/27/20 Unknown History Memantine HCl 10 mg PO BID 05/27/20 05/27/20 Unknown History Mirtazapine 7.5 mg PO HS 05/27/20 05/27/20 Unknown History Multivitamin 1 tab PO DAILY 05/27/20 05/27/20 Unknown History Pravastatin Sodium 20 mg PO QHS 05/27/20 05/27/20 Unknown History Active Meds: Active Medications Alprazolam (Xanax) 0.25 mg PO BID PRN PRN Reason: Anxiety Last Admin: 05/29/20 17:16 Dose: 0.25 mg Documented by: Donepezil HCl (Aricept) 10 mg PO DAILY [facility] Last Admin: 05/30/20 09:10 Dose: 10 mg Documented by: Ferrous Sulfate (Feosol) 325 mg PO DAILY [facility] Last Admin: 05/30/20 09:11 Dose: 325 mg Documented by: Fish Oil (Fish Oil) 2,000 mg PO BID [facility] Last Admin: 05/30/20 21:32 Dose: 2,000 mg Documented by: Glyburide (Diabeta) 10 mg PO BIDDIAB [facility] Last Admin: 05/30/20 16:27 Dose: 10 mg Documented by: Insulin Glargine (Lantus) 11 units SUB-Q HS [facility] Last Admin: 05/30/20 21:51 Dose: 11 units Documented by: Levothyroxine Sodium (Synthroid) 50 mcg PO DAILY@0600 [facility] Last Admin: 05/31/20 06:43 Dose: 50 mcg Documented by: Losartan Potassium (Cozaar) 25 mg PO QDAY [facility] Last Admin: 05/30/20 09:10 Dose: 25 mg Documented by: Melatonin (Melatonin) 5 mg PO QHS PRN PRN Reason: Sleep Last Admin: 05/26/20 21:25 Dose: 5 mg Documented by: Memantine (Memantine) 10 mg PO Q12HR [facility] Last Admin: 05/30/20 21:32 Dose: 10 mg Documented by: Multivitamins (Theragran Tab) 1 each PO DAILY [facility] Last Admin: 05/30/20 09:11 Dose: 1 each Documented by: Pravastatin Sodium (Pravachol) 20 mg PO QHS [facility] Last Admin: 05/30/20 21:32 Dose: 20 mg Documented by: Quetiapine Fumarate (Seroquel) 100 mg PO BID [facility] Last Admin: 05/30/20 21:32 Dose: 100 mg Documented by: Trazodone HCl (Desyrel) 50 mg PO QHS [facility] Last Admin: 05/30/20 21:32 Dose: 50 mg Documented by: Valproic Acid (Depakene Liq) 250 mg PO TID [facility] Last Admin: 05/30/20 20:35 Dose: 250 mg Documented by: Results - Results Labs/Vitals: Laboratory Last Values WBC 8.0 K/mm3 (4.5-11.0) 05/26/20 20:52 RBC 4.67 M/mm3 (3.65-5.03) 05/26/20 20:52 Hgb 15.1 gm/dl (10.1-14.3) H 05/26/20 20:52 Hct 43.4 % (30.3-42.9) H 05/26/20 20:52 MCV 93 fl (79-97) 05/26/20 20:52 MCH 32 pg (28-32) 05/26/20 20:52 MCHC 35 % (30-34) H 05/26/20 20:52 RDW 13.3 % (13.2-15.2) 05/26/20 20:52 Plt Count 278 K/mm3 (140-440) 05/26/20 20:52 Lymph % (Auto) 31.4 % (13.4-35.0) 05/26/20 20:52 [place] % (Auto) 6.3 % (0.0-7.3) 05/26/20 20:52 Eos % (Auto) 0.0 % (0.0-4.3) 05/26/20 20:52 Baso % (Auto) 0.2 % (0.0-1.8) 05/26/20 20:52 Lymph # 2.5 K/mm3 (1.2-5.4) 05/26/20 20:52 [place] # 0.5 K/mm3 (0.0-0.8) 05/26/20 20:52 Eos # 0.0 K/mm3 (0.0-0.4) 05/26/20 20:52 Baso # 0.0 K/mm3 (0.0-0.1) 05/26/20 20:52 Seg Neutrophils % 62.1 % (40.0-70.0) 05/26/20 20:52 Seg Neutrophils # 5.0 K/mm3 (1.8-7.7) 05/26/20 20:52 Sodium 139 mmol/L (137-145) 05/26/20 20:52 Potassium 3.6 mmol/L (3.6-5.0) 05/26/20 20:52 Chloride 97.6 mmol/L (98-107) L 05/26/20 20:52 Carbon Dioxide 23 mmol/L (22-30) 05/26/20 20:52 Anion Gap 22 mmol/L 05/26/20 20:52 BUN 10 mg/dL (7-17) 05/26/20 20:52 Creatinine 0.6 mg/dL (0.6-1.2) 05/26/20 20:52 Estimated GFR > 60 ml/min 05/26/20 20:52 BUN/Creatinine Ratio 17 % 05/26/20 20:52 Glucose 166 mg/dL (65-100) H 05/26/20 20:52 POC Glucose 53 (70-105) L 05/31/20 08:00 Hemoglobin A1c 8.1 % (4-6) H 05/26/20 20:52 Calcium 9.6 mg/dL (8.4-10.2) 05/26/20 20:52 Total Bilirubin 0.60 mg/dL (0.1-1.2) 05/26/20 20:52 AST 27 units/L (5-40) 05/26/20 20:52 ALT 15 units/L (7-56) 05/26/20 20:52 Alkaline Phosphatase 142 units/L (35-129) H 05/26/20 20:52 Total Protein 6.9 g/dL (6.3-8.2) 05/26/20 20:52 Albumin 3.9 g/dL (3.9-5) 05/26/20 20:52 Albumin/Globulin Ratio 1.3 % 05/26/20 20:52 Triglycerides 81 mg/dL (2-149) 05/26/20 20:52 Cholesterol 135 mg/dL (50-199) 05/26/20 20:52 LDL Cholesterol Direct 69 mg/dL (50-130) 05/26/20 20:52 HDL Cholesterol 62 mg/dL (40-59) H 05/26/20 20:52 Cholesterol/HDL Ratio 2.17 % 05/26/20 20:52 TSH 3.470 mlU/mL (0.270-4.200) 05/26/20 20:52 Valproic Acid 52.6 ug/mL (50-100) 05/29/20 18:52 Last Vital Signs Temp 97.6 F 05/30/20 19:45 Pulse 77 05/30/20 19:45 Resp 18 05/30/20 19:45 BP 121/64 05/30/20 19:45 Pulse Ox 98 05/30/20 19:45
[2020-05-31] MEDS ORDERED: INSULIN GLARGINE 100 UNITS/ML SUB-Q SCH (10:48)
[2020-05-31] MEDS: QUEtiapine 100 MG TAB PO SCH ×2 (10:59→21:03)
[2020-05-31] MEDS: OMEGA-3 FATTY ACIDS/FISH OIL 1 GRAM CAP PO SCH ×2 (10:59→21:02)
[2020-05-31] MEDS: MULTIVITAMINS ,THERAPEUTIC TAB PO SCH (10:59)
[2020-05-31] MEDS: MEMANTINE 10 MG TAB PO SCH ×2 (10:59→21:03)
[2020-05-31] MEDS: DONEPEZIL 10 MG TAB PO SCH (10:59)
[2020-05-31] MEDS: VALPROIC ACID 250 MG/5 ML ORAL LIQD PO SCH ×3 (10:59→20:28)
[2020-05-31] MEDS: FERROUS SULFATE 325 MG TAB PO SCH (10:59)
[2020-05-31] MEDS: LOSARTAN 25 MG TAB PO SCH (11:05)
[2020-05-31] MEDS: glyBURIDE 5 MG TAB PO SCH ×2 (11:05→18:00)
--- NOTE | 2020-05-31 11:53 | Event Note ---
Date: 05/31/20 Blood glucose accordion reviewed. She had blood glucose drop to the 50's. Will switch lantus to AM dose and reduce dose to 6 units
[2020-05-31] MEDS: traZODone 50 MG TAB PO SCH (21:03)
[2020-05-31] MEDS: PRAVASTATIN 20 MG TAB PO SCH (21:04)
[2020-06-01] MEDS: OMEGA-3 FATTY ACIDS/FISH OIL 1 GRAM CAP PO SCH ×2 (09:31→21:17)
--- NOTE | 2020-06-01 09:38 | Progress Note ---
Subjective Date of service: 06/01/20 Principal diagnosis: Dementia with Behv distrubance Subjective Comment: The patient's medical record was reviewed and the progress discussed with the nursing staff. The nurse note states the patient spent her evening in bed resting, she is alert and oriented to person, calm and cooperative, mood stable, she talked about her , and being a adame, she sang to the inspector automatic typewriter, no agitation, pleasantly confused, , refused sandwich, but had 4 cracker with pe anut butter,one cup of apple sauce, 472cc of fluid; she is medication compliant. During my interview with the patient today, she is lying down. She is awake and awaiting to get in the shower. She is pleasantly confused. She is calm and cooperative. She says she feels "pretty good but just doesn't have enough money." The patient then laughs. The patient denies hallucinations of any kind. She also denies SI/HI. She also says she slept "pretty good." When asked about her appetite, the patient states, "I think it's okay." Reason for continued inpatient admission: Although improving, the patient continues to have episodes where she is easily agitated. Will adjust medications and continue to stabilize in order to ensue a safe discharge. REVIEW OF SYSTEMS Constitutional: Negative for weight loss ENT: Negative for stridor Respiratory: Negative for cough or hemoptysis All other systems reviewed and are negative MENTAL STATUS EXAMINATION General Appearance; Dressed appropriately Behavior: Calm and cooperative. Fair eye contact Mood: "pretty good" Affect and affective range: Congruent with stated mood Thought Process: Fluent/Logical Thought Content: Within reality Speech: Normal volume, Regular rate and rhythm Suicidal Ideation: Denies Homicidal Ideation: Denies HI Hallucinations: Denies Delusions: None elicited Insight and Judgment: Limited Memory/Cognition: Normal Attention: Normal Orientation: Alert, oriented Assessment (1) Dementia w/Behavioral Disturbance Current Visit: Yes Status: Acute Treatment Plan Patient will be admitted for inpatient psychiatric evaluation, medication adjustment and close monitoring The patient's behavior, mood, sleep and appetite will be closely monitored. Patient will be enrolled in individual and group therapeutic sessions and encouraged to attend. Patient will be provided with a safe and structured environment. Patient's physical health needs will be addressed by the Hospitalist. Hospitalist Consulted Labs including CBC, CMP, Lipid profile and Hemoglobin A1C ordered OT/PT to eval and treat, CBC, CMP and UA ordered Social Assessment will be completed and the Perforator Operator will work with patient and family to ensure a suitable and safe disposition Medication adjustment will be made as clinically indicated No changes today to meds today Usual Wellness Mandaen/Preservation: - Start Trazodone 50 mg po QHS & 50 mg po QHS PRN between 10 PM & 2 AM for insomnia - Start Melatonin 5 mg po QHS to promote circadian rhythm - Start [place]-3 for brain health, reduce impulsivity, and as adjunctive treatment for mood disorder, continue upon discharge given overall benefits. - Start B1 prophylaxis with 200 mg po for 5 days The patient agreed on the treatment plan, understood the risk, benefit, alternative treatment, potential consequence of no treatment, and gave informed consent. Estimated days: 1 Post hospital care: primary care provider, psychiatric provider Medications and Allergies Allergies Allergy/AdvReac Type Severity Reaction Status Date / Time No Known Drug Allergies Allergy Unknown Verified 05/26/20 21:18 Home Medications Medication Instructions Recorded Confirmed Last Taken Type ALPRAZolam 0.25 mg PO BID PRN 05/27/20 05/27/20 Unknown History Aleve 220 mg PO PRN PRN 05/27/20 05/27/[address] 150 mg PO BID 05/27/20 05/27/20 Unknown History Donepezil HCl 10 mg PO DAILY 05/27/20 05/27/20 Unknown History Escitalopram 10 mg PO DAILY 05/27/20 05/27/20 Unknown History Ferrous Sulfate 324 MG 324 mg PO DAILY 05/27/20 05/27/20 Unknown History Glyburide 10 mg PO BID 05/27/20 05/27/20 Unknown History Insulin Glargine [Lantus VIAL] 8 unit SQ HS 05/27/20 05/27/20 Unknown History Levothyroxine Sodium 75 mcg PO DAILY 05/27/20 05/27/20 Unknown History Losartan Potassium 50 mg PO DAILY 05/27/20 05/27/20 Unknown History Memantine HCl 10 mg PO BID 05/27/20 05/27/20 Unknown History Mirtazapine 7.5 mg PO HS 05/27/20 05/27/20 Unknown History Multivitamin 1 tab PO DAILY 05/27/20 05/27/20 Unknown History Pravastatin Sodium 20 mg PO QHS 05/27/20 05/27/20 Unknown History Active Meds: Active Medications Alprazolam (Xanax) 0.25 mg PO BID PRN PRN Reason: Anxiety Last Admin: 05/29/20 17:16 Dose: 0.25 mg Documented by: Donepezil HCl (Aricept) 10 mg PO DAILY [facility] Last Admin: 05/31/20 10:59 Dose: 10 mg Documented by: Ferrous Sulfate (Feosol) 325 mg PO DAILY [facility] Last Admin: 05/31/20 10:59 Dose: 325 mg Documented by: Fish Oil (Fish Oil) 2,000 mg PO BID [facility] Last Admin: 06/01/20 09:31 Dose: 2,000 mg Documented by: Glyburide (Diabeta) 10 mg PO BIDDIAB [facility] Last Admin: 05/31/20 18:00 Dose: Not Given Documented by: Insulin Glargine (Lantus) 6 units SUB-Q QAMDIAB [facility] Levothyroxine Sodium (Synthroid) 50 mcg PO DAILY@0600 [facility] Last Admin: 05/31/20 06:43 Dose: 50 mcg Documented by: Losartan Potassium (Cozaar) 25 mg PO QDAY [facility] Last Admin: 05/31/20 11:05 Dose: 25 mg Documented by: Melatonin (Melatonin) 5 mg PO QHS PRN PRN Reason: Sleep Last Admin: 05/26/20 21:25 Dose: 5 mg Documented by: Memantine (Memantine) 10 mg PO Q12HR [facility] Last Admin: 05/31/20 21:03 Dose: 10 mg Documented by: Multivitamins (Theragran Tab) 1 each PO DAILY [facility] Last Admin: 05/31/20 10:59 Dose: 1 each Documented by: Pravastatin Sodium (Pravachol) 20 mg PO QHS [facility] Last Admin: 05/31/20 21:04 Dose: 20 mg Documented by: Quetiapine Fumarate (Seroquel) 100 mg PO BID [facility] Last Admin: 05/31/20 21:03 Dose: 100 mg Documented by: Trazodone HCl (Desyrel) 50 mg PO QHS [facility] Last Admin: 05/31/20 21:03 Dose: 50 mg Documented by: Valproic Acid (Depakene Liq) 250 mg PO TID [facility] Last Admin: 05/31/20 20:28 Dose: 250 mg Documented by: Results - Results Labs/Vitals: Laboratory Last Values WBC 8.0 K/mm3 (4.5-11.0) 05/26/20 20:52 RBC 4.67 M/mm3 (3.65-5.03) 05/26/20 20:52 Hgb 15.1 gm/dl (10.1-14.3) H 05/26/20 20:52 Hct 43.4 % (30.3-42.9) H 05/26/20 20:52 MCV 93 fl (79-97) 05/26/20 20:52 MCH 32 pg (28-32) 05/26/20 20:52 MCHC 35 % (30-34) H 05/26/20 20:52 RDW 13.3 % (13.2-15.2) 05/26/20 20:52 Plt Count 278 K/mm3 (140-440) 05/26/20 20:52 Lymph % (Auto) 31.4 % (13.4-35.0) 05/26/20 20:52 [place] % (Auto) 6.3 % (0.0-7.3) 05/26/20 20:52 Eos % (Auto) 0.0 % (0.0-4.3) 05/26/20 20:52 Baso % (Auto) 0.2 % (0.0-1.8) 05/26/20 20:52 Lymph # 2.5 K/mm3 (1.2-5.4) 05/26/20 20:52 [place] # 0.5 K/mm3 (0.0-0.8) 05/26/20 20:52 Eos # 0.0 K/mm3 (0.0-0.4) 05/26/20 20:52 Baso # 0.0 K/mm3 (0.0-0.1) 05/26/20 20:52 Seg Neutrophils % 62.1 % (40.0-70.0) 05/26/20 20:52 Seg Neutrophils # 5.0 K/mm3 (1.8-7.7) 05/26/20 20:52 Sodium 139 mmol/L (137-145) 05/26/20 20:52 Potassium 3.6 mmol/L (3.6-5.0) 05/26/20 20:52 Chloride 97.6 mmol/L (98-107) L 05/26/20 20:52 Carbon Dioxide 23 mmol/L (22-30) 05/26/20 20:52 Anion Gap 22 mmol/L 05/26/20 20:52 BUN 10 mg/dL (7-17) 05/26/20 20:52 Creatinine 0.6 mg/dL (0.6-1.2) 05/26/20 20:52 Estimated GFR > 60 ml/min 05/26/20 20:52 BUN/Creatinine Ratio 17 % 05/26/20 20:52 Glucose 166 mg/dL (65-100) H 05/26/20 20:52 POC Glucose 116 (70-105) H 06/01/20 06:30 Hemoglobin A1c 8.1 % (4-6) H 05/26/20 20:52 Calcium 9.6 mg/dL (8.4-10.2) 05/26/20 20:52 Total Bilirubin 0.60 mg/dL (0.1-1.2) 05/26/20 20:52 AST 27 units/L (5-40) 05/26/20 20:52 ALT 15 units/L (7-56) 05/26/20 20:52 Alkaline Phosphatase 142 units/L (35-129) H 05/26/20 20:52 Total Protein 6.9 g/dL (6.3-8.2) 05/26/20 20:52 Albumin 3.9 g/dL (3.9-5) 05/26/20 20:52 Albumin/Globulin Ratio 1.3 % 05/26/20 20:52 Triglycerides 81 mg/dL (2-149) 05/26/20 20:52 Cholesterol 135 mg/dL (50-199) 05/26/20 20:52 LDL Cholesterol Direct 69 mg/dL (50-130) 05/26/20 20:52 HDL Cholesterol 62 mg/dL (40-59) H 05/26/20 20:52 Cholesterol/HDL Ratio 2.17 % 05/26/20 20:52 TSH 3.470 mlU/mL (0.270-4.200) 05/26/20 20:52 Valproic Acid 52.6 ug/mL (50-100) 05/29/20 18:52 Last Vital Signs Temp 98.5 F 06/01/20 09:02 Pulse 77 06/01/20 09:02 Resp 18 06/01/20 09:02 BP 102/58 06/01/20 09:02 Pulse Ox 98 06/01/20 09:02
[2020-06-01] MEDS: MEMANTINE 10 MG TAB PO SCH ×2 (10:19→21:16)
[2020-06-01] MEDS: VALPROIC ACID 250 MG/5 ML ORAL LIQD PO SCH ×3 (10:19→21:16)
[2020-06-01] MEDS: DONEPEZIL 10 MG TAB PO SCH (10:20)
[2020-06-01] MEDS: QUEtiapine 100 MG TAB PO SCH ×2 (10:20→21:17)
[2020-06-01] MEDS: INSULIN GLARGINE 100 UNITS/ML SUB-Q SCH (10:20)
[2020-06-01] MEDS: FERROUS SULFATE 325 MG TAB PO SCH (10:20)
[2020-06-01] MEDS: LOSARTAN 25 MG TAB PO SCH (10:20)
[2020-06-01] MEDS: MULTIVITAMINS ,THERAPEUTIC TAB PO SCH (10:20)
[2020-06-01] MEDS: glyBURIDE 5 MG TAB PO SCH ×2 (10:21→16:21)
[2020-06-01] MEDS: LEVOTHYROXINE 50 MCG TAB PO SCH (10:27)
[2020-06-01] MEDS: PRAVASTATIN 20 MG TAB PO SCH (21:17)
[2020-06-01] MEDS: traZODone 50 MG TAB PO SCH (21:17)
[2020-06-02] MEDS: LEVOTHYROXINE 50 MCG TAB PO SCH (06:15)
[2020-06-02 06:54] LABS: Bilirubin,Urine NEG (Negative); Blood,Urine NEG (Negative); Color,Urine Yellow (Yellow); Hyaline Casts,Urine 1 /LPF; Mucus,Urine 1+ /HPF; Protein,Urine <15 mg/dL mg/dL (Negative)
--- NOTE | 2020-06-02 08:26 | Discharge Summary ---
Providers - Providers Date of Admission: 05/26/20 20:40 Date of discharge: 06/02/20 Attending physician: PEYTON HUITRON MD 05/26/20 15:56 Consult to Physician [CONS] Routine Comment: Consulting Provider: EM DIMAS Physician Instructions: Reason For Exam: medical mnagement 05/31/20 08:25 Physical Therapy Evaluation and Treat [CONS] Routine Comment: Reason For Exam: assess strength and abilities 05/31/20 08:26 Occupational Therapy Evaluate and Treat [CONS] Routine Comment: Reason For Exam: assess abilities Primary care physician: AUTO WINDER Hospitalization Admitting Diagnosis: F02.81 - DEMENTIA IN OTH DISEASES CLASSD ELSWHR W BEHAVIORAL DISTURB Hospital course: The patient was provided inpatient psychiatric treatment with safe and supportive care, medication adjustment, adverse effect monitoring, medical evaluations, medical treatments, assessment and psycho-education. The patient's mood, cognition, behavior, moral support are improved and stabilized. St the time of discharge, the patient had no endangering behavior and no debilitating adverse effects. The patient agreed on potential consequences of no treatment and gave informed consent. Disposition: DC- TO HOME OR SELFCARE Time spent for discharge: 35 Allergies/Adverse Reactions: Allergies No Known Drug Allergies Allergy (Verified 05/26/20 21:18) Unknown Vital Signs: Last Vital Signs Temp 97.6 F 06/01/20 19:44 Pulse 64 06/01/20 19:44 Resp 20 06/01/20 19:44 BP 132/62 06/01/20 19:44 Pulse Ox 98 06/01/20 19:44 Last Lab: Laboratory Last Values WBC 8.0 K/mm3 (4.5-11.0) 05/26/20 20:52 RBC 4.67 M/mm3 (3.65-5.03) 05/26/20 20:52 Hgb 15.1 gm/dl (10.1-14.3) H 05/26/20 20:52 Hct 43.4 % (30.3-42.9) H 05/26/20 20:52 MCV 93 fl (79-97) 05/26/20 20:52 MCH 32 pg (28-32) 05/26/20 20:52 MCHC 35 % (30-34) H 05/26/20 20:52 RDW 13.3 % (13.2-15.2) 05/26/20 20:52 Plt Count 278 K/mm3 (140-440) 05/26/20 20:52 Lymph % (Auto) 31.4 % (13.4-35.0) 05/26/20 20:52 [place] % (Auto) 6.3 % (0.0-7.3) 05/26/20 20:52 Eos % (Auto) 0.0 % (0.0-4.3) 05/26/20 20:52 Baso % (Auto) 0.2 % (0.0-1.8) 05/26/20 20:52 Lymph # 2.5 K/mm3 (1.2-5.4) 05/26/20 20:52 [place] # 0.5 K/mm3 (0.0-0.8) 05/26/20 20:52 Eos # 0.0 K/mm3 (0.0-0.4) 05/26/20 20:52 Baso # 0.0 K/mm3 (0.0-0.1) 05/26/20 20:52 Seg Neutrophils % 62.1 % (40.0-70.0) 05/26/20 20:52 Seg Neutrophils # 5.0 K/mm3 (1.8-7.7) 05/26/20 20:52 Sodium 139 mmol/L (137-145) 05/26/20 20:52 Potassium 3.6 mmol/L (3.6-5.0) 05/26/20 20:52 Chloride 97.6 mmol/L (98-107) L 05/26/20 20:52 Carbon Dioxide 23 mmol/L (22-30) 05/26/20 20:52 Anion Gap 22 mmol/L 05/26/20 20:52 BUN 10 mg/dL (7-17) 05/26/20 20:52 Creatinine 0.6 mg/dL (0.6-1.2) 05/26/20 20:52 Estimated GFR > 60 ml/min 05/26/20 20:52 BUN/Creatinine Ratio 17 % 05/26/20 20:52 Glucose 166 mg/dL (65-100) H 05/26/20 20:52 POC Glucose 122 (70-105) H 06/02/20 06:38 Hemoglobin A1c 8.1 % (4-6) H 05/26/20 20:52 Calcium 9.6 mg/dL (8.4-10.2) 05/26/20 20:52 Total Bilirubin 0.60 mg/dL (0.1-1.2) 05/26/20 20:52 AST 27 units/L (5-40) 05/26/20 20:52 ALT 15 units/L (7-56) 05/26/20 20:52 Alkaline Phosphatase 142 units/L (35-129) H 05/26/20 20:52 Total Protein 6.9 g/dL (6.3-8.2) 05/26/20 20:52 Albumin 3.9 g/dL (3.9-5) 05/26/20 20:52 Albumin/Globulin Ratio 1.3 % 05/26/20 20:52 Triglycerides 81 mg/dL (2-149) 05/26/20 20:52 Cholesterol 135 mg/dL (50-199) 05/26/20 20:52 LDL Cholesterol Direct 69 mg/dL (50-130) 05/26/20 20:52 HDL Cholesterol 62 mg/dL (40-59) H 05/26/20 20:52 Cholesterol/HDL Ratio 2.17 % 05/26/20 20:52 TSH 3.470 mlU/mL (0.270-4.200) 05/26/20 20:52 Urine Color Yellow (Yellow) 06/02/20 06:50 Urine Turbidity Clear (Clear) 06/02/20 06:50 Urine pH 5.0 (5.0-7.0) 06/02/20 06:50 Ur Specific [place] 1.016 (1.003-1.030) 06/02/20 06:50 Urine Protein <15 mg/dl mg/dL (Negative) 06/02/20 06:50 Urine Glucose (UA) Neg mg/dL (Negative) 06/02/20 06:50 Urine Ketones 20 mg/dL (Negative) 06/02/20 06:50 Urine Blood Neg (Negative) 06/02/20 06:50 Urine Nitrite Neg (Negative) 06/02/20 06:50 Urine Bilirubin Neg (Negative) 06/02/20 06:50 Urine Urobilinogen 2.0 mg/dL (<2.0) 06/02/20 06:50 Ur Leukocyte Esterase Tr (Negative) 06/02/20 06:50 Urine WBC (Auto) 5.0 /HPF (0.0-6.0) 06/02/20 06:50 Urine RBC (Auto) 2.0 /HPF (0.0-6.0) 06/02/20 06:50 U Epithel Cells (Auto) 1.0 /HPF (0-13.0) 06/02/20 06:50 Hyaline Casts 1 /LPF 06/02/20 06:50 Urine Mucus 1+ /HPF 06/02/20 06:50 Valproic Acid 52.6 ug/mL (50-100) 05/29/20 18:52 Core Measure Documentation - Palliative Care Palliative Care/ Comfort Measures: Not Applicable - Core Measures Any of the following diagnoses?: none Exam - Constitutional Vitals: Temp Pulse Resp BP Pulse Ox 97.6 F 64 20 132/62 98 06/01/20 19:44 06/01/20 19:44 06/01/20 19:44 06/01/20 19:44 06/01/20 19:44 General appearance: Present: no acute distress - EENT Eyes: Present: PERRL, EOM intact ENT: hearing intact, clear oral mucosa - Neck Neck: Present: supple, normal ROM - Respiratory Respiratory effort: normal Plan Activity: advance as tolerated Weight Bearing Status: Weight Bear as Tolerated Care Plan Goals: Maintain good and stable mental health Plan of Treatment: The patient should be compliant with medications, not to use drugs, and not to drink alcohol. The patient understands that if suicidal ideas, homicidal ideas or any endangering feeling arise, the patient should seek assistance including, but not limited to crisis hotline, and emergency room. Health Concerns: DM, Malnutrition Assessment: Dementia w/Behavioral Disturbance. The patient was calm, cooperative, with no signs of SI/HI or hallucinations verbalized or observed at time of assessment. Follow up with: PRIMARY CARE, [Primary Care Provider] - 7 Days Prescriptions: traZODone [Desyrel] 50 mg PO QHS #30 tablet Melatonin [Melatonin 5MG TAB] 5 mg PO QHS PRN #30 tablet PRN Reason: Sleep VALPROIC ACID Liq [DepaKENE Liq] 250 mg PO TID #1 oral.liqd [place]-3 Fatty Acids/Fish Oil [Fish Oil] 2,000 mg PO BID #120 capsule QUEtiapine [SEROquel] 100 mg PO BID #60 tablet
--- NOTE | 2020-06-02 09:56 | Progress Note ---
Subjective Date of service: 06/02/20 Principal diagnosis: Dementia with Behv distrubance Subjective Comment: The patient's medical record was reviewed and the progress discussed with the nursing staff. The nurse note the patient is mood is labile pleasant and calm then becomes irritable and combative. Pt required multiple attempts for her to be compliant with medication and was given crushed in apple sauce. Pt refused to have snacks and threatened to "knock out" staff when she tried to encourage fluids. Pt has poor insight and is unable to recall why she was here. She is repeatedly asking staff "can you find me a man?" and would also make reference to her "taking care of the kids." The patient was also noted to be making animal noises, according to hospice volunteer coordinator. During my interview with the patient today, she is sitting in the dayroom. She is confused. She says she's "doing great." Her affect is restricted. She denies SI/HI or hallucinations of any kind. Reason for continued inpatient admission: The patient continues to have episodes where she is easily agitated, and aggressive. Bizarre behavior at times, as noted using animal noises to communicate. The patient is also unable to care for herself. Will adjust medications and continue to stabilize in order to ensue a safe discharge. REVIEW OF SYSTEMS Constitutional: Negative for weight loss ENT: Negative for stridor Respiratory: Negative for cough or hemoptysis All other systems reviewed and are negative MENTAL STATUS EXAMINATION General Appearance; Dressed appropriately Behavior: Calm and cooperative. Fair eye contact Mood: "pretty good" Affect and affective range: Congruent with stated mood Thought Process: Fluent/Logical Thought Content: Within reality Speech: Normal volume, Regular rate and rhythm Suicidal Ideation: Denies Homicidal Ideation: Denies HI Hallucinations: Denies Delusions: None elicited Insight and Judgment: Limited Memory/Cognition: Normal Attention: Normal Orientation: Alert, oriented Assessment (1) Dementia w/Behavioral Disturbance Current Visit: Yes Status: Acute Treatment Plan Patient will be admitted for inpatient psychiatric evaluation, medication adjustment and close monitoring The patient's behavior, mood, sleep and appetite will be closely monitored. Patient will be enrolled in individual and group therapeutic sessions and encouraged to attend. Patient will be provided with a safe and structured environment. Patient's physical health needs will be addressed by the Hospitalist. Hospitalist Consulted Labs including CBC, CMP, Lipid profile and Hemoglobin A1C ordered OT/PT to eval and treat, CBC, CMP and UA ordered Social Assessment will be completed and the As400 Administrator will work with patient and family to ensure a suitable and safe disposition Medication adjustment will be made as clinically indicated Increase Valproic to 500mg po BID Usual Wellness Mormon/Preservation: - Start Trazodone 50 mg po QHS & 50 mg po QHS PRN between 10 PM & 2 AM for insomnia - Start Melatonin 5 mg po QHS to promote circadian rhythm - Start Datto-3 for brain health, reduce impulsivity, and as adjunctive treatment for mood disorder, continue upon discharge given overall benefits. - Start B1 prophylaxis with 200 mg po for 5 days The patient agreed on the treatment plan, understood the risk, benefit, alternative treatment, potential consequence of no treatment, and gave informed consent. Estimated days: 1 Post hospital care: primary care provider, psychiatric provider Medications and Allergies Allergies Allergy/AdvReac Type Severity Reaction Status Date / Time No Known Drug Allergies Allergy Unknown Verified 05/26/20 21:18 Home Medications Medication Instructions Recorded Confirmed Last Taken Type ALPRAZolam 0.25 mg PO BID PRN 05/27/20 05/27/20 Unknown History Aleve 220 mg PO PRN PRN 05/27/20 05/27/20 Unknown History Donepezil HCl 10 mg PO DAILY 05/27/20 05/27/20 Unknown History Escitalopram 10 mg PO DAILY 05/27/20 05/27/20 Unknown History Ferrous Sulfate 324 MG 324 mg PO DAILY 05/27/20 05/27/20 Unknown History Glyburide 10 mg PO BID 05/27/20 05/27/20 Unknown History Insulin Glargine [Lantus VIAL] 8 unit SQ 05/27/20 05/27/20 Unknown History Levothyroxine Sodium 75 mcg PO DAILY 05/27/20 05/27/20 Unknown History Losartan Potassium 50 mg PO DAILY 05/27/20 05/27/20 Unknown History Memantine HCl 10 mg PO BID 05/27/20 05/27/20 Unknown History Mirtazapine 7.5 mg PO HS 05/27/20 05/27/20 Unknown History Multivitamin 1 tab PO DAILY 05/27/20 05/27/20 Unknown History Pravastatin Sodium 20 mg PO QHS 05/27/20 05/27/20 Unknown History Melatonin [Melatonin 5MG TAB] 5 mg PO QHS PRN #30 tablet 06/02/20 Unknown Rx Datto-3 Fatty Acids/Fish Oil [Fish 2,000 mg PO BID #120 capsule 06/02/20 Unknown Rx Oil] QUEtiapine [SEROquel] 100 mg PO BID #60 tablet 06/02/20 Unknown Rx VALPROIC ACID Liq [DepaKENE Liq] 250 mg PO TID #1 oral.liqd 06/02/20 Unknown Rx traZODone [Desyrel] 50 mg PO QHS #30 tablet 06/02/20 Unknown Rx Active Meds: Active Medications Alprazolam (Xanax) 0.25 mg PO BID PRN PRN Reason: Anxiety Last Admin: 05/29/20 17:16 Dose: 0.25 mg Documented by: Donepezil HCl (Aricept) 10 mg PO DAILY [facility] Last Admin: 06/01/20 10:20 Dose: 10 mg Documented by: Ferrous Sulfate (Feosol) 325 mg PO DAILY [facility] Last Admin: 06/01/20 10:20 Dose: 325 mg Documented by: Fish Oil (Fish Oil) 2,000 mg PO BID [facility] Last Admin: 06/01/20 21:17 Dose: 2,000 mg Documented by: Glyburide (Diabeta) 10 mg PO BIDDIAB [facility] Last Admin: 06/01/20 16:21 Dose: 10 mg Documented by: Insulin Glargine (Lantus) 6 units SUB-Q QAMDIAB [facility] Last Admin: 06/01/20 10:20 Dose: Not Given Documented by: Levothyroxine Sodium (Synthroid) 50 mcg PO DAILY@0600 [facility] Last Admin: 06/02/20 06:15 Dose: 50 mcg Documented by: Losartan Potassium (Cozaar) 25 mg PO QDAY [facility] Last Admin: 06/01/20 10:20 Dose: Not Given Documented by: Melatonin (Melatonin) 5 mg PO QHS PRN PRN Reason: Sleep Last Admin: 05/26/20 21:25 Dose: 5 mg Documented by: Memantine (Memantine) 10 mg PO Q12HR [facility] Last Admin: 06/01/20 21:16 Dose: 10 mg Documented by: Multivitamins (Theragran Tab) 1 each PO DAILY [facility] Last Admin: 06/01/20 10:20 Dose: 1 each Documented by: Pravastatin Sodium (Pravachol) 20 mg PO QHS [facility] Last Admin: 06/01/20 21:17 Dose: 20 mg Documented by: Quetiapine Fumarate (Seroquel) 100 mg PO BID [facility] Last Admin: 06/01/20 21:17 Dose: 100 mg Documented by: Trazodone HCl (Desyrel) 50 mg PO QHS [facility] Last Admin: 06/01/20 21:17 Dose: 50 mg Documented by: Valproic Acid (Depakene Liq) 250 mg PO TID [facility] Last Admin: 06/01/20 21:16 Dose: 250 mg Documented by: Results - Results Labs/Vitals: Laboratory Last Values WBC 8.0 K/mm3 (4.5-11.0) 05/26/20 20:52 RBC 4.67 M/mm3 (3.65-5.03) 05/26/20 20:52 Hgb 15.1 gm/dl (10.1-14.3) H 05/26/20 20:52 Hct 43.4 % (30.3-42.9) H 05/26/20 20:52 MCV 93 fl (79-97) 05/26/20 20:52 MCH 32 pg (28-32) 05/26/20 20:52 MCHC 35 % (30-34) H 05/26/20 20:52 RDW 13.3 % (13.2-15.2) 05/26/20 20:52 Plt Count 278 K/mm3 (140-440) 05/26/20 20:52 Lymph % (Auto) 31.4 % (13.4-35.0) 05/26/20 20:52 [place] % (Auto) 6.3 % (0.0-7.3) 05/26/20 20:52 Eos % (Auto) 0.0 % (0.0-4.3) 05/26/20 20:52 Baso % (Auto) 0.2 % (0.0-1.8) 05/26/20 20:52 Lymph # 2.5 K/mm3 (1.2-5.4) 05/26/20 20:52 [place] # 0.5 K/mm3 (0.0-0.8) 05/26/20 20:52 Eos # 0.0 K/mm3 (0.0-0.4) 05/26/20 20:52 Baso # 0.0 K/mm3 (0.0-0.1) 05/26/20 20:52 Seg Neutrophils % 62.1 % (40.0-70.0) 05/26/20 20:52 Seg Neutrophils # 5.0 K/mm3 (1.8-7.7) 05/26/20 20:52 Sodium 139 mmol/L (137-145) 05/26/20 20:52 Potassium 3.6 mmol/L (3.6-5.0) 05/26/20 20:52 Chloride 97.6 mmol/L (98-107) L 05/26/20 20:52 Carbon Dioxide 23 mmol/L (22-30) 05/26/20 20:52 Anion Gap 22 mmol/L 05/26/20 20:52 BUN 10 mg/dL (7-17) 05/26/20 20:52 Creatinine 0.6 mg/dL (0.6-1.2) 05/26/20 20:52 Estimated GFR > 60 ml/min 05/26/20 20:52 BUN/Creatinine Ratio 17 % 05/26/20 20:52 Glucose 166 mg/dL (65-100) H 05/26/20 20:52 POC Glucose 122 (70-105) H 06/02/20 06:38 Hemoglobin A1c 8.1 % (4-6) H 05/26/20 20:52 Calcium 9.6 mg/dL (8.4-10.2) 05/26/20 20:52 Total Bilirubin 0.60 mg/dL (0.1-1.2) 05/26/20 20:52 AST 27 units/L (5-40) 05/26/20 20:52 ALT 15 units/L (7-56) 05/26/20 20:52 Alkaline Phosphatase 142 units/L (35-129) H 05/26/20 20:52 Total Protein 6.9 g/dL (6.3-8.2) 05/26/20 20:52 Albumin 3.9 g/dL (3.9-5) 05/26/20 20:52 Albumin/Globulin Ratio 1.3 % 05/26/20 20:52 Triglycerides 81 mg/dL (2-149) 05/26/20 20:52 Cholesterol 135 mg/dL (50-199) 05/26/20 20:52 LDL Cholesterol Direct 69 mg/dL (50-130) 05/26/20 20:52 HDL Cholesterol 62 mg/dL (40-59) H 05/26/20 20:52 Cholesterol/HDL Ratio 2.17 % 05/26/20 20:52 TSH 3.470 mlU/mL (0.270-4.200) 05/26/20 20:52 Urine Color Yellow (Yellow) 06/02/20 06:50 Urine Turbidity Clear (Clear) 06/02/20 06:50 Urine pH 5.0 (5.0-7.0) 06/02/20 06:50 Ur Specific [place] 1.016 (1.003-1.030) 06/02/20 06:50 Urine Protein <15 mg/dl mg/dL (Negative) 06/02/20 06:50 Urine Glucose (UA) Neg mg/dL (Negative) 06/02/20 06:50 Urine Ketones 20 mg/dL (Negative) 06/02/20 06:50 Urine Blood Neg (Negative) 06/02/20 06:50 Urine Nitrite Neg (Negative) 06/02/20 06:50 Urine Bilirubin Neg (Negative) 06/02/20 06:50 Urine Urobilinogen 2.0 mg/dL (<2.0) 06/02/20 06:50 Ur Leukocyte Esterase Tr (Negative) 06/02/20 06:50 Urine WBC (Auto) 5.0 /HPF (0.0-6.0) 06/02/20 06:50 Urine RBC (Auto) 2.0 /HPF (0.0-6.0) 06/02/20 06:50 U Epithel Cells (Auto) 1.0 /HPF (0-13.0) 06/02/20 06:50 Hyaline Casts 1 /LPF 06/02/20 06:50 Urine Mucus 1+ /HPF 06/02/20 06:50 Valproic Acid 52.6 ug/mL (50-100) 05/29/20 18:52 Last Vital Signs Temp 97.6 F 06/01/20 19:44 Pulse 64 06/01/20 19:44 Resp 20 06/01/20 19:44 BP 132/62 06/01/20 19:44 Pulse Ox 98 06/01/20 19:44
[2020-06-02] MEDS: DONEPEZIL 10 MG TAB PO SCH (10:35)
[2020-06-02] MEDS: QUEtiapine 100 MG TAB PO SCH ×2 (10:35→21:39)
[2020-06-02] MEDS: MULTIVITAMINS ,THERAPEUTIC TAB PO SCH (10:35)
[2020-06-02] MEDS: MEMANTINE 10 MG TAB PO SCH ×2 (10:35→21:40)
[2020-06-02] MEDS: FERROUS SULFATE 325 MG TAB PO SCH (10:35)
[2020-06-02] MEDS: OMEGA-3 FATTY ACIDS/FISH OIL 1 GRAM CAP PO SCH ×2 (10:36→21:39)
[2020-06-02] MEDS: VALPROIC ACID 250 MG/5 ML ORAL LIQD PO SCH ×3 (10:36→21:40)
[2020-06-02] MEDS: LOSARTAN 25 MG TAB PO SCH (10:36)
[2020-06-02] MEDS: INSULIN GLARGINE 100 UNITS/ML SUB-Q SCH (10:37)
[2020-06-02] MEDS: glyBURIDE 5 MG TAB PO SCH ×2 (10:37→16:56)
[2020-06-02 11:18] LABS: Basophils % (Auto) 0.3 % (0.0-1.8); Hematocrit 42.3 % (30.3-42.9); Hemoglobin 14.4 gm/dl (10.1-14.3); Lymphocytes # (Auto) 1.8 K/mm3 (1.2-5.4); Mean Corpuscular HGB Conc 34 % (30-34); Mean Corpuscular Volume 94 fl (79-97); Monocytes # (Auto) 0.4 K/mm3 (0.0-0.8); Monocytes % (Auto) 6.5 % (0.0-7.3); Platelet Count 220 K/mm3 (140-440); Red Blood Count 4.51 M/mm3 (3.65-5.03); Red Cell Distribution Width 13.3 % (13.2-15.2)
[2020-06-02 11:40] LABS: Alanine Aminotransferase 10 units/L (7-56); Albumin 3.6 g/dL (3.9-5); Blood Urea Nitrogen 11 mg/dL (7-17); Calcium 9.5 mg/dL (8.4-10.2); Hemolysis Index 8
[2020-06-02 11:43] LABS: BUN/Creatinine Ratio 18
--- NOTE | 2020-06-02 16:36 | Progress Note ---
Assessment and Plan - Patient Problems (1) Dementia with behavioral disturbance Current Visit: Yes Status: Acute Qualifiers: Dementia type: vascular dementia Qualified Code(s): F01.51 - Vascular dementia with behavioral disturbance (2) Hypothyroidism Current Visit: Yes Status: Chronic (3) HLD (hyperlipidemia) Current Visit: Yes Status: Chronic (4) HTN (hypertension) Current Visit: Yes Status: Chronic (5) Diabetes Current Visit: Yes Status: Chronic (6) Malnutrition of moderate degree Current Visit: Yes Status: Acute (7) DVT prophylaxis Current Visit: Yes Status: Acute History Interval history: This 74-year-old female with vascular dementia, DM, HTN, hypothyroidism, HLD who was admitted to [facility] psych from [facility] for dementia with behavioral disturbances. We were consulted for medical management during inpatient stay. Hypoglycemia noted therefore Lantus increased to 11 units nightly. Continue to monitor and make changes as necessary. Hospitalist Physical - Constitutional Vitals: Temp Pulse Resp BP Pulse Ox 98.7 F 82 16 112/70 98 06/02/20 08:07 06/02/20 10:36 06/02/20 08:07 06/02/20 10:36 06/02/20 08:07 General appearance: Present: no acute distress Results - Labs CBC & Chem 7: 06/02/20 10:55 06/02/20 10:55 Labs: Laboratory Last Values WBC 6.8 K/mm3 (4.5-11.0) 06/02/20 10:55 RBC 4.51 M/mm3 (3.65-5.03) 06/02/20 10:55 Hgb 14.4 gm/dl (10.1-14.3) H 06/02/20 10:55 Hct 42.3 % (30.3-42.9) 06/02/20 10:55 MCV 94 fl (79-97) 06/02/20 10:55 MCH 32 pg (28-32) 06/02/20 10:55 MCHC 34 % (30-34) 06/02/20 10:55 RDW 13.3 % (13.2-15.2) 06/02/20 10:55 Plt Count 220 K/mm3 (140-440) 06/02/20 10:55 Lymph % (Auto) 27.0 % (13.4-35.0) 06/02/20 10:55 [place] % (Auto) 6.5 % (0.0-7.3) 06/02/20 10:55 Eos % (Auto) 0.0 % (0.0-4.3) 06/02/20 10:55 Baso % (Auto) 0.3 % (0.0-1.8) 06/02/20 10:55 Lymph # 1.8 K/mm3 (1.2-5.4) 06/02/20 10:55 [place] # 0.4 K/mm3 (0.0-0.8) 06/02/20 10:55 Eos # 0.0 K/mm3 (0.0-0.4) 06/02/20 10:55 Baso # 0.0 K/mm3 (0.0-0.1) 06/02/20 10:55 Seg Neutrophils % 66.2 % (40.0-70.0) 06/02/20 10:55 Seg Neutrophils # 4.5 K/mm3 (1.8-7.7) 06/02/20 10:55 Sodium 140 mmol/L (137-145) 06/02/20 10:55 Potassium 3.9 mmol/L (3.6-5.0) 06/02/20 10:55 Chloride 99.7 mmol/L (98-107) 06/02/20 10:55 Carbon Dioxide 28 mmol/L (22-30) 06/02/20 10:55 Anion Gap 16 mmol/L 06/02/20 10:55 BUN 11 mg/dL (7-17) 06/02/20 10:55 Creatinine 0.6 mg/dL (0.6-1.2) 06/02/20 10:55 Estimated GFR > 60 ml/min 06/02/20 10:55 BUN/Creatinine Ratio 18 % 06/02/20 10:55 Glucose 195 mg/dL (65-100) H 06/02/20 10:55 POC Glucose 169 (70-105) H 06/02/20 12:19 Hemoglobin A1c 8.1 % (4-6) H 05/26/20 20:52 Calcium 9.5 mg/dL (8.4-10.2) 06/02/20 10:55 Total Bilirubin 0.60 mg/dL (0.1-1.2) 06/02/20 10:55 AST 22 units/L (5-40) 06/02/20 10:55 ALT 10 units/L (7-56) 06/02/20 10:55 Alkaline Phosphatase 115 units/L (35-129) 06/02/20 10:55 Total Protein 6.3 g/dL (6.3-8.2) 06/02/20 10:55 Albumin 3.6 g/dL (3.9-5) L 06/02/20 10:55 Albumin/Globulin Ratio 1.3 % 06/02/20 10:55 Triglycerides 81 mg/dL (2-149) 05/26/20 20:52 Cholesterol 135 mg/dL (50-199) 05/26/20 20:52 LDL Cholesterol Direct 69 mg/dL (50-130) 05/26/20 20:52 HDL Cholesterol 62 mg/dL (40-59) H 05/26/20 20:52 Cholesterol/HDL Ratio 2.17 % 05/26/20 20:52 TSH 3.470 mlU/mL (0.270-4.200) 05/26/20 20:52 Urine Color Yellow (Yellow) 06/02/20 06:50 Urine Turbidity Clear (Clear) 06/02/20 06:50 Urine pH 5.0 (5.0-7.0) 06/02/20 06:50 Ur Specific [place] 1.016 (1.003-1.030) 06/02/20 06:50 Urine Protein <15 mg/dl mg/dL (Negative) 06/02/20 06:50 Urine Glucose (UA) Neg mg/dL (Negative) 06/02/20 06:50 Urine Ketones 20 mg/dL (Negative) 06/02/20 06:50 Urine Blood Neg (Negative) 06/02/20 06:50 Urine Nitrite Neg (Negative) 06/02/20 06:50 Urine Bilirubin Neg (Negative) 06/02/20 06:50 Urine Urobilinogen 2.0 mg/dL (<2.0) 06/02/20 06:50 Ur Leukocyte Esterase Tr (Negative) 06/02/20 06:50 Urine WBC (Auto) 5.0 /HPF (0.0-6.0) 06/02/20 06:50 Urine RBC (Auto) 2.0 /HPF (0.0-6.0) 06/02/20 06:50 U Epithel Cells (Auto) 1.0 /HPF (0-13.0) 06/02/20 06:50 Hyaline Casts 1 /LPF 06/02/20 06:50 Urine Mucus 1+ /HPF 06/02/20 06:50 Valproic Acid 52.6 ug/mL (50-100) 05/29/20 18:52 [place]andez/IV: Voiding Method Diaper Active Medications - Current Medications Current Medications: Generic Name Dose Route Start Last Admin Trade Name Freq PRN Reason Stop Dose Admin Alprazolam 0.25 mg 05/27/20 10:00 05/29/20 17:16 Xanax PO 0.25 mg BID PRN Administration Anxiety Donepezil HCl 10 mg 05/27/20 12:00 06/02/20 10:35 Aricept PO 10 mg DAILY [facility]AL Administration Ferrous Sulfate 325 mg 05/27/20 10:00 06/02/20 10:35 Feosol PO 325 mg DAILY [facility] Administration Fish Oil 2,000 mg 05/26/20 16:00 06/02/20 10:36 Fish Oil PO 2,000 mg BID [facility] Administration Glyburide 10 mg 05/27/20 17:00 06/02/20 10:37 Diabeta PO 10 mg BIDDIAB [facility] Administration Insulin Glargine 6 units 06/01/20 08:00 06/02/20 10:37 Lantus SUB-Q Not Given QAMDIAB DONAL Levothyroxine Sodium 50 mcg 05/27/20 09:00 06/02/20 06:15 Synthroid PO 50 mcg DAILY@0600 [facility] Administration Losartan Potassium 25 mg 05/29/20 17:00 06/02/20 10:36 Cozaar PO 25 mg QDAY [facility] Administration Melatonin 5 mg 05/26/20 15:59 05/26/20 21:25 Melatonin PO 5 mg QHS PRN Administration Sleep Memantine 10 mg 05/27/20 10:00 06/02/20 10:35 Memantine PO 10 mg Q12HR [facility] Administration Multivitamins 1 each 05/28/20 10:00 06/02/20 10:35 Theragran Tab PO 1 each DAILY [facility] Administration Pravastatin Sodium 20 mg 05/27/20 22:00 06/01/20 21:17 Pravachol PO 20 mg QHS [facility] Administration Quetiapine Fumarate 100 mg 05/28/20 10:00 06/02/20 10:35 Seroquel PO 100 mg BID [facility] Administration Trazodone HCl 50 mg 05/26/20 22:00 06/01/20 21:17 Desyrel PO 50 mg QHS [facility] Administration Valproic Acid 500 mg 06/02/20 11:00 06/02/20 10:36 Depakene Liq PO 500 mg BID [facility] Administration Nutrition/Malnutrition Assess - Dietary Evaluation Nutrition/Malnutrition Findings: Nutrition Notes Start: 06/02/20 12:09 Freq: Status: Active Protocol: Document 06/02/20 12:09 (Rec: 06/02/20 12:18 [id number]) Co-Sign 06/02/20 12:09 LP Nutrition Notes Need for Assessment generated from: LOS Initial or Follow up Assessment Current Diagnosis Diabetes,Hypertension, Hyperlipidemia Other Pertinent Diagnosis Malnutrition, Dementia Current Diet Cardiac, Consistent CHO Labs/Tests Reviewed Pertinent Medications Reviewed Height 5 ft 6 in Weight 55.33 kg [place] Body Weight (kg) 59.09 BMI 19.7 Weight Status Underweight Subjective/Other Information Pt screened for LOS. Pt reports not feeling very hungry and eating small amounts of food. Per RN patient consuming small sips of ONS and 25% of trays. Burn Absent Trauma Absent GI Symptoms None Current % PO Poor (25-49%) Minimum of two criteria No #1 Nutrition Diagnosis Inadequate energy intake Etiology advanced age As Evidenced by Signs and Symptoms pt comsuming 25% of meals Is patient on ventilator? No Is Patient Ambulatory and/or Out of Bed Yes REE-([facility]-ambulatory/OOB) [ 1384.565 [id number]] Calculation Used for Recommendations [facility] Additional Notes Pro: 55-66g (1-1.2g/kg) Fluid 1 ml/kcal Nutrition Intervention Add Supplement/Snack (indicate name/kcal Glucerna Vanilla BID /protein ) Provides kCal: 440 Provides Protein (gm) 20 Goal #1 Meet at least 80% of energy and protein needs via PO and ONS intakes Anticipated Discharge Needs: Cardiac, Consistent CHO Follow-Up By: 06/05/20 Additional Comments FU for ONS tolerance and intakes
[2020-06-02] MEDS: PRAVASTATIN 20 MG TAB PO SCH (21:39)
[2020-06-02] MEDS: traZODone 50 MG TAB PO SCH (21:39)
[2020-06-03] MEDS: LEVOTHYROXINE 50 MCG TAB PO SCH (06:13)
--- NOTE | 2020-06-03 09:17 | Progress Note ---
Subjective Date of service: 06/03/20 Principal diagnosis: Dementia with Behv distrubance Subjective Comment: The patient's medical record was reviewed and the progress discussed with the nursing staff. The nurse note states the patient is less irritable this afternoon. She was observed interact with peers minimal participation in groups. During my interview with the patient today, she is lying down in bed. She is a/o x 1. She is calm and cooperative. She is telling me that "talking to me is causing her too much money." The patient denies hallucinations of any kind, stating "I have no problems with that." She also denies SI/HI Reason for continued inpatient admission: The patient has improved. However she is awaiting placement. Will continue to stabilize on current regimen, and plan for a safe discharge. REVIEW OF SYSTEMS Constitutional: Negative for weight loss ENT: Negative for stridor Respiratory: Negative for cough or hemoptysis All other systems reviewed and are negative MENTAL STATUS EXAMINATION General Appearance; Dressed appropriately Behavior: Calm and cooperative. Fair eye contact Mood: "pretty good" Affect and affective range: Congruent with stated mood Thought Process: Fluent/Logical Thought Content: Within reality Speech: Normal volume, Regular rate and rhythm Suicidal Ideation: Denies Homicidal Ideation: Denies HI Hallucinations: Denies Delusions: None elicited Insight and Judgment: Limited Memory/Cognition: Normal Attention: Normal Orientation: Alert, oriented Assessment (1) Dementia w/Behavioral Disturbance Current Visit: Yes Status: Acute Treatment Plan Patient will be admitted for inpatient psychiatric evaluation, medication adjustment and close monitoring The patient's behavior, mood, sleep and appetite will be closely monitored. Patient will be enrolled in individual and group therapeutic sessions and encouraged to attend. Patient will be provided with a safe and structured environment. Patient's physical health needs will be addressed by the Hospitalist. Hospitalist Consulted Labs including CBC, CMP, Lipid profile and Hemoglobin A1C ordered Social Assessment will be completed and the [employer]er will work with patient and family to ensure a suitable and safe disposition Medication adjustment will be made as clinically indicated Valproic to 500mg po BID yesterday No changes made today Usual Wellness Mandaen/Preservation: - Start Trazodone 50 mg po QHS & 50 mg po QHS PRN between 10 PM & 2 AM for insomnia - Start Melatonin 5 mg po QHS to promote circadian rhythm - Start [place]-3 for brain health, reduce impulsivity, and as adjunctive treatment for mood disorder, continue upon discharge given overall benefits. - Start B1 prophylaxis with 200 mg po for 5 days The patient agreed on the treatment plan, understood the risk, benefit, alternative treatment, potential consequence of no treatment, and gave informed consent. Estimated days: 1 Post hospital care: primary care provider, psychiatric provider Medications and Allergies Allergies Allergy/AdvReac Type Severity Reaction Status Date / Time No Known Drug Allergies Allergy Unknown Verified 05/26/20 21:18 Home Medications Medication Instructions Recorded Confirmed Last Taken Type ALPRAZolam 0.25 mg PO BID PRN 05/27/20 05/27/20 Unknown History Aleve 220 mg PO PRN PRN 05/27/20 05/27/20 Unknown History Donepezil HCl 10 mg PO DAILY 05/27/20 05/27/20 Unknown History Escitalopram 10 mg PO DAILY 05/27/20 05/27/20 Unknown History Ferrous Sulfate 324 MG 324 mg PO DAILY 05/27/20 05/27/20 Unknown History Glyburide 10 mg PO BID 05/27/20 05/27/20 Unknown History Insulin Glargine [Lantus VIAL] 8 unit SQ HS 05/27/20 05/27/20 Unknown History Levothyroxine Sodium 75 mcg PO DAILY 05/27/20 05/27/20 Unknown History Losartan Potassium 50 mg PO DAILY 05/27/20 05/27/20 Unknown History Memantine HCl 10 mg PO BID 05/27/20 05/27/20 Unknown History Mirtazapine 7.5 mg PO HS 05/27/20 05/27/20 Unknown History Multivitamin 1 tab PO DAILY 05/27/20 05/27/20 Unknown History Pravastatin Sodium 20 mg PO QHS 05/27/20 05/27/20 Unknown History Melatonin [Melatonin 5MG TAB] 5 mg PO QHS PRN #30 tablet 06/02/20 Unknown Rx [place]-3 Fatty Acids/Fish Oil [Fish 2,000 mg PO BID #120 capsule 06/02/20 Unknown Rx Oil] QUEtiapine [SEROquel] 100 mg PO BID #60 tablet 06/02/20 Unknown Rx VALPROIC ACID Liq [DepaKENE Liq] 250 mg PO TID #1 oral.liqd 06/02/20 Unknown Rx traZODone [Desyrel] 50 mg PO QHS #30 tablet 06/02/20 Unknown Rx Active Meds: Active Medications Alprazolam (Xanax) 0.25 mg PO BID PRN PRN Reason: Anxiety Last Admin: 05/29/20 17:16 Dose: 0.25 mg Documented by: Donepezil HCl (Aricept) 10 mg PO DAILY [facility] Last Admin: 06/02/20 10:35 Dose: 10 mg Documented by: Ferrous Sulfate (Feosol) 325 mg PO DAILY [facility] Last Admin: 06/02/20 10:35 Dose: 325 mg Documented by: Fish Oil (Fish Oil) 2,000 mg PO BID [facility] Last Admin: 06/02/20 21:39 Dose: 2,000 mg Documented by: Glyburide (Diabeta) 10 mg PO BIDDIAB [facility] Last Admin: 06/02/20 16:56 Dose: 10 mg Documented by: Insulin Glargine (Lantus) 6 units SUB-Q QAMDIAB [facility] Last Admin: 06/02/20 10:37 Dose: Not Given Documented by: Levothyroxine Sodium (Synthroid) 50 mcg PO DAILY@0600 [facility] Last Admin: 06/03/20 06:13 Dose: 50 mcg Documented by: Losartan Potassium (Cozaar) 25 mg PO QDAY [facility] Last Admin: 06/02/20 10:36 Dose: 25 mg Documented by: Melatonin (Melatonin) 5 mg PO QHS PRN PRN Reason: Sleep Last Admin: 05/26/20 21:25 Dose: 5 mg Documented by: Memantine (Memantine) 10 mg PO Q12HR [facility] Last Admin: 06/02/20 21:40 Dose: 10 mg Documented by: Multivitamins (Theragran Tab) 1 each PO DAILY [facility] Last Admin: 06/02/20 10:35 Dose: 1 each Documented by: Pravastatin Sodium (Pravachol) 20 mg PO QHS [facility] Last Admin: 06/02/20 21:39 Dose: 20 mg Documented by: Quetiapine Fumarate (Seroquel) 100 mg PO BID [facility] Last Admin: 06/02/20 21:39 Dose: 100 mg Documented by: Trazodone HCl (Desyrel) 50 mg PO QHS [facility] Last Admin: 06/02/20 21:39 Dose: 50 mg Documented by: Valproic Acid (Depakene Liq) 500 mg PO BID [facility] Last Admin: 06/02/20 21:40 Dose: 500 mg Documented by: Results - Results Labs/Vitals: Laboratory Last Values WBC 6.8 K/mm3 (4.5-11.0) 06/02/20 10:55 RBC 4.51 M/mm3 (3.65-5.03) 06/02/20 10:55 Hgb 14.4 gm/dl (10.1-14.3) H 06/02/20 10:55 Hct 42.3 % (30.3-42.9) 06/02/20 10:55 MCV 94 fl (79-97) 06/02/20 10:55 MCH 32 pg (28-32) 06/02/20 10:55 MCHC 34 % (30-34) 06/02/20 10:55 RDW 13.3 % (13.2-15.2) 06/02/20 10:55 Plt Count 220 K/mm3 (140-440) 06/02/20 10:55 Lymph % (Auto) 27.0 % (13.4-35.0) 06/02/20 10:55 [place] % (Auto) 6.5 % (0.0-7.3) 06/02/20 10:55 Eos % (Auto) 0.0 % (0.0-4.3) 06/02/20 10:55 Baso % (Auto) 0.3 % (0.0-1.8) 06/02/20 10:55 Lymph # 1.8 K/mm3 (1.2-5.4) 06/02/20 10:55 [place] # 0.4 K/mm3 (0.0-0.8) 06/02/20 10:55 Eos # 0.0 K/mm3 (0.0-0.4) 06/02/20 10:55 Baso # 0.0 K/mm3 (0.0-0.1) 06/02/20 10:55 Seg Neutrophils % 66.2 % (40.0-70.0) 06/02/20 10:55 Seg Neutrophils # 4.5 K/mm3 (1.8-7.7) 06/02/20 10:55 Sodium 140 mmol/L (137-145) 06/02/20 10:55 Potassium 3.9 mmol/L (3.6-5.0) 06/02/20 10:55 Chloride 99.7 mmol/L (98-107) 06/02/20 10:55 Carbon Dioxide 28 mmol/L (22-30) 06/02/20 10:55 Anion Gap 16 mmol/L 06/02/20 10:55 BUN 11 mg/dL (7-17) 06/02/20 10:55 Creatinine 0.6 mg/dL (0.6-1.2) 06/02/20 10:55 Estimated GFR > 60 ml/min 06/02/20 10:55 BUN/Creatinine Ratio 18 % 06/02/20 10:55 Glucose 195 mg/dL (65-100) H 06/02/20 10:55 POC Glucose 97 (70-105) 06/03/20 07:26 Hemoglobin A1c 8.1 % (4-6) H 05/26/20 20:52 Calcium 9.5 mg/dL (8.4-10.2) 06/02/20 10:55 Total Bilirubin 0.60 mg/dL (0.1-1.2) 06/02/20 10:55 AST 22 units/L (5-40) 06/02/20 10:55 ALT 10 units/L (7-56) 06/02/20 10:55 Alkaline Phosphatase 115 units/L (35-129) 06/02/20 10:55 Total Protein 6.3 g/dL (6.3-8.2) 06/02/20 10:55 Albumin 3.6 g/dL (3.9-5) L 06/02/20 10:55 Albumin/Globulin Ratio 1.3 % 06/02/20 10:55 Triglycerides 81 mg/dL (2-149) 05/26/20 20:52 Cholesterol 135 mg/dL (50-199) 05/26/20 20:52 LDL Cholesterol Direct 69 mg/dL (50-130) 05/26/20 20:52 HDL Cholesterol 62 mg/dL (40-59) H 05/26/20 20:52 Cholesterol/HDL Ratio 2.17 % 05/26/20 20:52 TSH 3.470 mlU/mL (0.270-4.200) 05/26/20 20:52 Urine Color Yellow (Yellow) 06/02/20 06:50 Urine Turbidity Clear (Clear) 06/02/20 06:50 Urine pH 5.0 (5.0-7.0) 06/02/20 06:50 Ur Specific [place] 1.016 (1.003-1.030) 06/02/20 06:50 Urine Protein <15 mg/dl mg/dL (Negative) 06/02/20 06:50 Urine Glucose (UA) Neg mg/dL (Negative) 06/02/20 06:50 Urine Ketones 20 mg/dL (Negative) 06/02/20 06:50 Urine Blood Neg (Negative) 06/02/20 06:50 Urine Nitrite Neg (Negative) 06/02/20 06:50 Urine Bilirubin Neg (Negative) 06/02/20 06:50 Urine Urobilinogen 2.0 mg/dL (<2.0) 06/02/20 06:50 Ur Leukocyte Esterase Tr (Negative) 06/02/20 06:50 Urine WBC (Auto) 5.0 /HPF (0.0-6.0) 06/02/20 06:50 Urine RBC (Auto) 2.0 /HPF (0.0-6.0) 06/02/20 06:50 U Epithel Cells (Auto) 1.0 /HPF (0-13.0) 06/02/20 06:50 Hyaline Casts 1 /LPF 06/02/20 06:50 Urine Mucus 1+ /HPF 06/02/20 06:50 Valproic Acid 52.6 ug/mL (50-100) 05/29/20 18:52 Last Vital Signs Temp 98.8 F 06/02/20 19:21 Pulse 87 06/02/20 19:21 Resp 20 06/02/20 19:21 BP 119/76 06/02/20 19:21 Pulse Ox 98 06/02/20 19:21
[2020-06-03] MEDS: MULTIVITAMINS ,THERAPEUTIC TAB PO SCH (09:54)
[2020-06-03] MEDS: FERROUS SULFATE 325 MG TAB PO SCH (09:54)
[2020-06-03] MEDS: OMEGA-3 FATTY ACIDS/FISH OIL 1 GRAM CAP PO SCH ×2 (09:54→21:08)
[2020-06-03] MEDS: QUEtiapine 100 MG TAB PO SCH ×2 (09:55→21:09)
[2020-06-03] MEDS: VALPROIC ACID 250 MG/5 ML ORAL LIQD PO SCH ×2 (09:55→21:08)
[2020-06-03] MEDS: MEMANTINE 10 MG TAB PO SCH ×2 (09:55→21:08)
[2020-06-03] MEDS: DONEPEZIL 10 MG TAB PO SCH (09:55)
[2020-06-03] MEDS: INSULIN GLARGINE 100 UNITS/ML SUB-Q SCH (09:55)
[2020-06-03] MEDS: glyBURIDE 5 MG TAB PO SCH ×2 (09:55→16:41)
[2020-06-03] MEDS: LOSARTAN 25 MG TAB PO SCH (09:56)
--- NOTE | 2020-06-03 14:26 | XRay Report ---
CHEST 1 VIEW INDICATION / CLINICAL INFORMATION: TB CHECK FOR PLACEMENT/ PROTOCOL. COMPARISON: None available. FINDINGS: SUPPORT DEVICES: None. HEART / MEDIASTINUM: No significant abnormality. LUNGS / PLEURA: No significant pulmonary or pleural abnormality. No pneumothorax. ADDITIONAL FINDINGS: Cholecystectomy clips. IMPRESSION: 1. No acute findings. Signer Name: Derrek Patel MD Signed: 06/03/2020 2:22 PM Workstation Name: [id number]
--- NOTE | 2020-06-03 15:25 | Progress Note ---
Assessment and Plan - Patient Problems (1) Dementia with behavioral disturbance Current Visit: Yes Status: Acute Qualifiers: Dementia type: vascular dementia Qualified Code(s): F01.51 - Vascular dementia with behavioral disturbance Plan to address problem: - Management per primary (2) Hypothyroidism Current Visit: Yes Status: Chronic Plan to address problem: - Resume home Synthroid - 05/26 TSH 3.4 (3) HLD (hyperlipidemia) Current Visit: Yes Status: Chronic Plan to address problem: - Resumed home statin - 05/26 lipid panel: Triglyceride 81, cholesterol 135, LDL 61, HDL 62 (4) HTN (hypertension) Current Visit: Yes Status: Chronic Plan to address problem: - Resumed home Cozaar, dose decreased on 05/29 - Blood pressure monitoring per protocol (5) Diabetes Current Visit: Yes Status: Chronic Plan to address problem: - 05/26 Hbg A1C 8.1 - 05/29 increased Lantus 11 units at bedtime - 05/31 hypoglycemia; switch lantus to AM dose and reduce dose to 6 units - DiaBeta BID - Accucheck ACHS - Hypoglycemia protocol (6) Malnutrition of moderate degree Current Visit: Yes Status: Acute Plan to address problem: - Will need supplemental feeds and nutrition referral at discharge - Added Nutritional supplement to meals (7) DVT prophylaxis Current Visit: Yes Status: Acute Plan to address problem: - SCDs to BLE while in bed History Interval history: This 74-year-old female with vascular dementia, DM, HTN, hypothyroidism, HLD who was admitted [facility] on 05/26 from [facility] for dementia with behavioral disturbances. We were consulted for medical management during inpatient stay. 05/31: switch lantus to AM dose and reduce dose to 6 units Hospitalist Physical - Constitutional Vitals: Temp Pulse Resp BP Pulse Ox 97.5 F L 67 18 114/71 96 06/03/20 07:12 06/03/20 07:12 06/03/20 07:12 06/03/20 07:12 06/03/20 07:12 General appearance: Present: no acute distress - EENT Eyes: Present: PERRL, EOM intact ENT: hearing decreased - Neck Neck: Present: supple - Respiratory Respiratory effort: normal Respiratory: bilateral: CTA - Cardiovascular Rhythm: regular Heart Sounds: Present: S1 & S2. Absent: systolic murmur, diastolic murmur - Extremities Extremities: no ischemia, pulses intact, pulses symmetrical, No edema, normal temperature, normal color, Full ROM Peripheral Pulses: within normal limits - Abdominal General gastrointestinal: soft, non-tender, non-distended, normal bowel sounds - Integumentary Integumentary: Present: clear, warm, dry - Psychiatric Psychiatric: cooperative - Neurologic Neurologic: CNII-XII intact, no focal deficits, moves all extremities Results - Labs CBC & Chem 7: 06/02/20 10:55 06/02/20 10:55 Labs: Laboratory Last Values WBC 6.8 K/mm3 (4.5-11.0) 06/02/20 10:55 RBC 4.51 M/mm3 (3.65-5.03) 06/02/20 10:55 Hgb 14.4 gm/dl (10.1-14.3) H 06/02/20 10:55 Hct 42.3 % (30.3-42.9) 06/02/20 10:55 MCV 94 fl (79-97) 06/02/20 10:55 MCH 32 pg (28-32) 06/02/20 10:55 MCHC 34 % (30-34) 06/02/20 10:55 RDW 13.3 % (13.2-15.2) 06/02/20 10:55 Plt Count 220 K/mm3 (140-440) 06/02/20 10:55 Lymph % (Auto) 27.0 % (13.4-35.0) 06/02/20 10:55 [place] % (Auto) 6.5 % (0.0-7.3) 06/02/20 10:55 Eos % (Auto) 0.0 % (0.0-4.3) 06/02/20 10:55 Baso % (Auto) 0.3 % (0.0-1.8) 06/02/20 10:55 Lymph # 1.8 K/mm3 (1.2-5.4) 06/02/20 10:55 [place] # 0.4 K/mm3 (0.0-0.8) 06/02/20 10:55 Eos # 0.0 K/mm3 (0.0-0.4) 06/02/20 10:55 Baso # 0.0 K/mm3 (0.0-0.1) 06/02/20 10:55 Seg Neutrophils % 66.2 % (40.0-70.0) 06/02/20 10:55 Seg Neutrophils # 4.5 K/mm3 (1.8-7.7) 06/02/20 10:55 Sodium 140 mmol/L (137-145) 06/02/20 10:55 Potassium 3.9 mmol/L (3.6-5.0) 06/02/20 10:55 Chloride 99.7 mmol/L (98-107) 06/02/20 10:55 Carbon Dioxide 28 mmol/L (22-30) 06/02/20 10:55 Anion Gap 16 mmol/L 06/02/20 10:55 BUN 11 mg/dL (7-17) 06/02/20 10:55 Creatinine 0.6 mg/dL (0.6-1.2) 06/02/20 10:55 Estimated GFR > 60 ml/min 06/02/20 10:55 BUN/Creatinine Ratio 18 % 06/02/20 10:55 Glucose 195 mg/dL (65-100) H 06/02/20 10:55 POC Glucose 184 (70-105) H 06/03/20 11:18 Hemoglobin A1c 8.1 % (4-6) H 05/26/20 20:52 Calcium 9.5 mg/dL (8.4-10.2) 06/02/20 10:55 Total Bilirubin 0.60 mg/dL (0.1-1.2) 06/02/20 10:55 AST 22 units/L (5-40) 06/02/20 10:55 ALT 10 units/L (7-56) 06/02/20 10:55 Alkaline Phosphatase 115 units/L (35-129) 06/02/20 10:55 Total Protein 6.3 g/dL (6.3-8.2) 06/02/20 10:55 Albumin 3.6 g/dL (3.9-5) L 06/02/20 10:55 Albumin/Globulin Ratio 1.3 % 06/02/20 10:55 Triglycerides 81 mg/dL (2-149) 05/26/20 20:52 Cholesterol 135 mg/dL (50-199) 05/26/20 20:52 LDL Cholesterol Direct 69 mg/dL (50-130) 05/26/20 20:52 HDL Cholesterol 62 mg/dL (40-59) H 05/26/20 20:52 Cholesterol/HDL Ratio 2.17 % 05/26/20 20:52 TSH 3.470 mlU/mL (0.270-4.200) 05/26/20 20:52 Urine Color Yellow (Yellow) 06/02/20 06:50 Urine Turbidity Clear (Clear) 06/02/20 06:50 Urine pH 5.0 (5.0-7.0) 06/02/20 06:50 Ur Specific [place] 1.016 (1.003-1.030) 06/02/20 06:50 Urine Protein <15 mg/dl mg/dL (Negative) 06/02/20 06:50 Urine Glucose (UA) Neg mg/dL (Negative) 06/02/20 06:50 Urine Ketones 20 mg/dL (Negative) 06/02/20 06:50 Urine Blood Neg (Negative) 06/02/20 06:50 Urine Nitrite Neg (Negative) 06/02/20 06:50 Urine Bilirubin Neg (Negative) 06/02/20 06:50 Urine Urobilinogen 2.0 mg/dL (<2.0) 06/02/20 06:50 Ur Leukocyte Esterase Tr (Negative) 06/02/20 06:50 Urine WBC (Auto) 5.0 /HPF (0.0-6.0) 06/02/20 06:50 Urine RBC (Auto) 2.0 /HPF (0.0-6.0) 06/02/20 06:50 U Epithel Cells (Auto) 1.0 /HPF (0-13.0) 06/02/20 06:50 Hyaline Casts 1 /LPF 06/02/20 06:50 Urine Mucus 1+ /HPF 06/02/20 06:50 Valproic Acid 52.6 ug/mL (50-100) 05/29/20 18:52 [place]/IV: Voiding Method Toilet Active Medications - Current Medications Current Medications: Generic Name Dose Route Start Last Admin Trade Name Freq PRN Reason Stop Dose Admin Alprazolam 0.25 mg 05/27/20 10:00 05/29/20 17:16 Xanax PO 0.25 mg BID PRN Administration Anxiety Donepezil HCl 10 mg 05/27/20 12:00 06/03/20 09:55 Aricept PO 10 mg DAILY DONAL Administration Ferrous Sulfate 325 mg 05/27/20 10:00 06/03/20 09:54 Feosol PO 325 mg DAILY DONAL Administration Fish Oil 2,000 mg 05/26/20 16:00 06/03/20 09:54 Fish Oil PO 2,000 mg BID DONAL Administration Glyburide 10 mg 05/27/20 17:00 06/03/20 09:55 Diabeta PO 10 mg BIDDIAB [facility]AL Administration Insulin Glargine 6 units 06/01/20 08:00 06/03/20 09:55 Lantus SUB-Q Not Given QAMDIAB DONAL Levothyroxine Sodium 50 mcg 05/27/20 09:00 06/03/20 06:13 Synthroid PO 50 mcg DAILY@0600 DONAL Administration Losartan Potassium 25 mg 05/29/20 17:00 06/03/20 09:56 Cozaar PO 25 mg QDAY [facility] Administration Melatonin 5 mg 05/26/20 15:59 05/26/20 21:25 Melatonin PO 5 mg QHS PRN Administration Sleep Memantine 10 mg 05/27/20 10:00 06/03/20 09:55 Memantine PO 10 mg Q12HR [facility] Administration Multivitamins 1 each 05/28/20 10:00 06/03/20 09:54 Theragran Tab PO 1 each DAILY [facility] Administration Pravastatin Sodium 20 mg 05/27/20 22:00 06/02/20 21:39 Pravachol PO 20 mg QHS DONAL Administration Quetiapine Fumarate 100 mg 05/28/20 10:00 06/03/20 09:55 Seroquel PO 100 mg BID DONAL Administration Trazodone HCl 50 mg 05/26/20 22:00 06/02/20 21:39 Desyrel PO 50 mg QHS DONAL Administration Valproic Acid 500 mg 06/02/20 11:00 06/03/20 09:55 Depakene Liq PO 500 mg BID DONAL Administration Nutrition/Malnutrition Assess - Dietary Evaluation Nutrition/Malnutrition Findings: Nutrition Notes Start: 06/02/20 12:09 Freq: Status: Active Protocol: Document 06/02/20 12:09 ERIKA (Rec: 06/02/20 12:18 ERIKA [id number]) Co-Sign 06/02/20 12:09 LP Nutrition Notes Need for Assessment generated from: LOS Initial or Follow up Assessment Current Diagnosis Diabetes,Hypertension, Hyperlipidemia Other Pertinent Diagnosis Malnutrition, Dementia Current Diet Cardiac, Consistent CHO Labs/Tests Reviewed Pertinent Medications Reviewed Height 5 ft 6 in Weight 55.33 kg [place] Body Weight (kg) 59.09 BMI 19.7 Weight Status Underweight Subjective/Other Information Pt screened for LOS. Pt reports not feeling very hungry and eating small amounts of food. Per RN patient consuming small sips of ONS and 25% of trays. Burn Absent Trauma Absent GI Symptoms None Current % PO Poor (25-49%) Minimum of two criteria No #1 Nutrition Diagnosis Inadequate energy intake Etiology advanced age As Evidenced by Signs and Symptoms pt comsuming 25% of meals Is patient on ventilator? No Is Patient Ambulatory and/or Out of Bed Yes REE-([facility]-ambulatory/OOB) [ 1384.565 [id number]] Calculation [facility]ations [facility] Additional Notes Pro: 55-66g (1-1.2g/kg) Fluid 1 ml/kcal Nutrition Intervention Add Supplement/Snack (indicate name/kcal Glucerna Vanilla BID /protein ) Provides kCal: 440 Provides Protein (gm) 20 Goal #1 Meet at least 80% of energy and protein needs via PO and ONS intakes Anticipated Discharge Needs: Cardiac, Consistent CHO Follow-Up By: 06/05/20 Additional Comments FU for ONS tolerance and intakes
[2020-06-03] MEDS: PRAVASTATIN 20 MG TAB PO SCH (21:08)
[2020-06-03] MEDS: traZODone 50 MG TAB PO SCH (21:09)
[2020-06-04] MEDS: LEVOTHYROXINE 50 MCG TAB PO SCH (05:41)
--- NOTE | 2020-06-04 09:01 | Discharge Summary ---
Providers - Providers Date of Admission: 05/26/20 20:40 Date of discharge: 06/04/20 Attending physician: PEYTON HUITRON MD 05/26/20 15:56 Consult to Physician [CONS] Routine Comment: Consulting Provider: QUINTIN FOSTER Physician Instructions: Reason For Exam: medical mnagement 05/31/20 08:25 Physical Therapy Evaluation and Treat [CONS] Routine Comment: Reason For Exam: assess strength and abilities 05/31/20 08:26 Occupational Therapy Evaluate and Treat [CONS] Routine Comment: Reason For Exam: assess abilities Primary care physician: TAN ROOM SUPERVISOR Hospitalization Reason for admission: agitation Admitting Diagnosis: F02.81 - DEMENTIA IN OTH DISEASES CLASSD ELSWHR W BEHAVIORAL DISTURB Hospital course: The patient was provided inpatient psychiatric treatment with safe and supportive care, medication adjustment, adverse effect monitoring, medical evaluations, medical treatments, assessment and psycho-education. The patient's mood, cognition, behavior, moral support are improved and stabilized. St the time of discharge, the patient had no endangering behavior and no debilitating adverse effects. The patient agreed on potential consequences of no treatment and gave informed consent. Disposition: DC-01 TO HOME OR SELFCARE Time spent for discharge: 38 Allergies/Adverse Reactions: Allergies No Known Drug Allergies Allergy (Verified 05/26/20 21:18) Unknown Vital Signs: Last Vital Signs Temp 98.1 F 06/03/20 19:58 Pulse 79 06/03/20 19:58 Resp 15 06/03/20 19:58 BP 111/66 06/03/20 19:58 Pulse Ox 95 06/03/20 19:58 Last Lab: Laboratory Last Values WBC 6.8 K/mm3 (4.5-11.0) 06/02/20 10:55 RBC 4.51 M/mm3 (3.65-5.03) 06/02/20 10:55 Hgb 14.4 gm/dl (10.1-14.3) H 06/02/20 10:55 Hct 42.3 % (30.3-42.9) 06/02/20 10:55 MCV 94 fl (79-97) 06/02/20 10:55 MCH 32 pg (28-32) 06/02/20 10:55 MCHC 34 % (30-34) 06/02/20 10:55 RDW 13.3 % (13.2-15.2) 06/02/20 10:55 Plt Count 220 K/mm3 (140-440) 06/02/20 10:55 Lymph % (Auto) 27.0 % (13.4-35.0) 06/02/20 10:55 [place] % (Auto) 6.5 % (0.0-7.3) 06/02/20 10:55 Eos % (Auto) 0.0 % (0.0-4.3) 06/02/20 10:55 Baso % (Auto) 0.3 % (0.0-1.8) 06/02/20 10:55 Lymph # 1.8 K/mm3 (1.2-5.4) 06/02/20 10:55 [place] # 0.4 K/mm3 (0.0-0.8) 06/02/20 10:55 Eos # 0.0 K/mm3 (0.0-0.4) 06/02/20 10:55 Baso # 0.0 K/mm3 (0.0-0.1) 06/02/20 10:55 Seg Neutrophils % 66.2 % (40.0-70.0) 06/02/20 10:55 Seg Neutrophils # 4.5 K/mm3 (1.8-7.7) 06/02/20 10:55 Sodium 140 mmol/L (137-145) 06/02/20 10:55 Potassium 3.9 mmol/L (3.6-5.0) 06/02/20 10:55 Chloride 99.7 mmol/L (98-107) 06/02/20 10:55 Carbon Dioxide 28 mmol/L (22-30) 06/02/20 10:55 Anion Gap 16 mmol/L 06/02/20 10:55 BUN 11 mg/dL (7-17) 06/02/20 10:55 Creatinine 0.6 mg/dL (0.6-1.2) 06/02/20 10:55 Estimated GFR > 60 ml/min 06/02/20 10:55 BUN/Creatinine Ratio 18 % 06/02/20 10:55 Glucose 195 mg/dL (65-100) H 06/02/20 10:55 POC Glucose 139 (70-105) H 06/04/20 07:51 Hemoglobin A1c 8.1 % (4-6) H 05/26/20 20:52 Calcium 9.5 mg/dL (8.4-10.2) 06/02/20 10:55 Total Bilirubin 0.60 mg/dL (0.1-1.2) 06/02/20 10:55 AST 22 units/L (5-40) 06/02/20 10:55 ALT 10 units/L (7-56) 06/02/20 10:55 Alkaline Phosphatase 115 units/L (35-129) 06/02/20 10:55 Total Protein 6.3 g/dL (6.3-8.2) 06/02/20 10:55 Albumin 3.6 g/dL (3.9-5) L 06/02/20 10:55 Albumin/Globulin Ratio 1.3 % 06/02/20 10:55 Triglycerides 81 mg/dL (2-149) 05/26/20 20:52 Cholesterol 135 mg/dL (50-199) 05/26/20 20:52 LDL Cholesterol Direct 69 mg/dL (50-130) 05/26/20 20:52 HDL Cholesterol 62 mg/dL (40-59) H 05/26/20 20:52 Cholesterol/HDL Ratio 2.17 % 05/26/20 20:52 TSH 3.470 mlU/mL (0.270-4.200) 05/26/20 20:52 Urine Color Yellow (Yellow) 06/02/20 06:50 Urine Turbidity Clear (Clear) 06/02/20 06:50 Urine pH 5.0 (5.0-7.0) 06/02/20 06:50 Ur Specific [place] 1.016 (1.003-1.030) 06/02/20 06:50 Urine Protein <15 mg/dl mg/dL (Negative) 06/02/20 06:50 Urine Glucose (UA) Neg mg/dL (Negative) 06/02/20 06:50 Urine Ketones 20 mg/dL (Negative) 06/02/20 06:50 Urine Blood Neg (Negative) 06/02/20 06:50 Urine Nitrite Neg (Negative) 06/02/20 06:50 Urine Bilirubin Neg (Negative) 06/02/20 06:50 Urine Urobilinogen 2.0 mg/dL (<2.0) 06/02/20 06:50 Ur Leukocyte Esterase Tr (Negative) 06/02/20 06:50 Urine WBC (Auto) 5.0 /HPF (0.0-6.0) 06/02/20 06:50 Urine RBC (Auto) 2.0 /HPF (0.0-6.0) 06/02/20 06:50 U Epithel Cells (Auto) 1.0 /HPF (0-13.0) 06/02/20 06:50 Hyaline Casts 1 /LPF 06/02/20 06:50 Urine Mucus 1+ /HPF 06/02/20 06:50 Valproic Acid 52.6 ug/mL (50-100) 05/29/20 18:52 Core Measure Documentation - Palliative Care Palliative Care/ Comfort Measures: Not Applicable - Core Measures Any of the following diagnoses?: none Exam - Constitutional Vitals: Temp Pulse Resp BP Pulse Ox 98.1 F 79 15 111/66 95 06/03/20 19:58 06/03/20 19:58 06/03/20 19:58 06/03/20 19:58 06/03/20 19:58 General appearance: Present: no acute distress - EENT Eyes: Present: PERRL, EOM intact ENT: hearing intact, clear oral mucosa - Neck Neck: Present: supple, normal ROM - Respiratory Respiratory effort: normal Plan Activity: advance as tolerated Weight Bearing Status: Weight Bear as Tolerated Care Plan Goals: Maintain good and stable mental health Plan of Treatment: The patient should be compliant with medications, not to use drugs, and not to drink alcohol. The patient understands that if suicidal ideas, homicidal ideas or any endangering feeling arise, the patient should seek assistance including, but not limited to crisis hotline, and emergency room. Health Concerns: DM, Malnutrition Assessment: Dementia w/Behavioral Disturbance. The patient was calm, cooperative, with no signs of SI/HI or hallucinations verbalized or observed at time of assessment. Follow up with: PRIMARY CARE, [Primary Care Provider] - 7 Days Prescriptions: traZODone [Desyrel] 50 mg PO QHS #30 tablet Melatonin [Melatonin 5MG TAB] 5 mg PO QHS PRN #30 tablet PRN Reason: Sleep VALPROIC ACID Liq [DepaKENE Liq] 250 mg PO TID #1 oral.liqd [place]-3 Fatty Acids/Fish Oil [Fish Oil] 2,000 mg PO BID #120 capsule QUEtiapine [SEROquel] 100 mg PO BID #60 tablet
--- NOTE | 2020-06-04 10:51 | Event Note ---
Date: 06/04/20 The chest x-ray performed on 06/03 showed no sign of active TB.
[2020-06-04] MEDS: INSULIN GLARGINE 100 UNITS/ML SUB-Q SCH (11:19)
[2020-06-04] MEDS: glyBURIDE 5 MG TAB PO SCH ×2 (11:21→17:08)
[2020-06-04] MEDS: VALPROIC ACID 250 MG/5 ML ORAL LIQD PO SCH ×2 (11:21→21:19)
[2020-06-04] MEDS: QUEtiapine 100 MG TAB PO SCH ×2 (11:22→21:20)
[2020-06-04] MEDS: LOSARTAN 25 MG TAB PO SCH (11:22)
[2020-06-04] MEDS: MEMANTINE 10 MG TAB PO SCH ×2 (11:22→21:20)
[2020-06-04] MEDS: DONEPEZIL 10 MG TAB PO SCH (11:22)
[2020-06-04] MEDS: FERROUS SULFATE 325 MG TAB PO SCH (11:23)
[2020-06-04] MEDS: OMEGA-3 FATTY ACIDS/FISH OIL 1 GRAM CAP PO SCH ×2 (11:31→21:20)
[2020-06-04] MEDS: MULTIVITAMINS ,THERAPEUTIC TAB PO SCH (11:32)
[2020-06-04] MEDS: traZODone 50 MG TAB PO SCH (21:19)
[2020-06-04] MEDS: PRAVASTATIN 20 MG TAB PO SCH (21:20)
[2020-06-05] MEDS: LEVOTHYROXINE 50 MCG TAB PO SCH (06:41)
--- NOTE | 2020-06-05 08:23 | Progress Note ---
Subjective Date of service: 06/04/20 Principal diagnosis: Dementia with Behv distrubance Subjective Comment: The patient's medical record was reviewed and the progress discussed with the nursing staff. During my interview with the patient today, she is lying down in bed. She is a/o x 1. She is calm and cooperative. The patient denies SI/HI or hallucinations of any kind. Reason for continued inpatient admission: The patient is at her baseline. However she is awaiting family to pick her up. They could not pick her up until today. Discharge was canceled for yesterday. Will plan for a safe discharge tomorrow morning. REVIEW OF SYSTEMS Constitutional: Negative for weight loss ENT: Negative for stridor Respiratory: Negative for cough or hemoptysis All other systems reviewed and are negative MENTAL STATUS EXAMINATION General Appearance; Dressed appropriately Behavior: Calm and cooperative. Fair eye contact Mood: "pretty good" Affect and affective range: Congruent with stated mood Thought Process: Fluent/Logical Thought Content: Within reality Speech: Normal volume, Regular rate and rhythm Suicidal Ideation: Denies Homicidal Ideation: Denies HI Hallucinations: Denies Delusions: None elicited Insight and Judgment: Limited Memory/Cognition: Normal Attention: Normal Orientation: Alert, oriented Assessment (1) Dementia w/Behavioral Disturbance Current Visit: Yes Status: Acute Treatment Plan Patient will be admitted for inpatient psychiatric evaluation, medication adjustment and close monitoring The patient's behavior, mood, sleep and appetite will be closely monitored. Patient will be enrolled in individual and group therapeutic sessions and encouraged to attend. Patient will be provided with a safe and structured environment. Patient's physical health needs will be addressed by the Hospitalist. Hospitalist Consulted Labs including CBC, CMP, Lipid profile and Hemoglobin A1C ordered Social Assessment will be completed and the Wellness Nurse Rn will work with patient and family to ensure a suitable and safe disposition Medication adjustment will be made as clinically indicated Valproic to 500mg po BID yesterday No changes made today Usual Wellness Baptism/Preservation: - Start Trazodone 50 mg po QHS & 50 mg po QHS PRN between 10 PM & 2 AM for insomnia - Start Melatonin 5 mg po QHS to promote circadian rhythm - Start [place]-3 for brain health, reduce impulsivity, and as adjunctive treatment for mood disorder, continue upon discharge given overall benefits. - Start B1 prophylaxis with 200 mg po for 5 days The patient agreed on the treatment plan, understood the risk, benefit, alternative treatment, potential consequence of no treatment, and gave informed consent. Estimated days: 1 Post hospital care: primary care provider, psychiatric provider Medications and Allergies Allergies Allergy/AdvReac Type Severity Reaction Status Date / Time No Known Drug Allergies Allergy Unknown Verified 05/26/20 21:18 Home Medications Medication Instructions Recorded Confirmed Last Taken Type ALPRAZolam 0.25 mg PO BID PRN 05/27/20 05/27/20 Unknown History Aleve 220 mg PO PRN PRN 05/27/20 05/27/20 Unknown History Donepezil HCl 10 mg PO DAILY 05/27/20 05/27/20 Unknown History Escitalopram 10 mg PO DAILY 05/27/20 05/27/20 Unknown History Ferrous Sulfate 324 MG 324 mg PO DAILY 05/27/20 05/27/20 Unknown History Glyburide 10 mg PO BID 05/27/20 05/27/20 Unknown History Insulin Glargine [Lantus VIAL] 8 unit SQ HS 05/27/20 05/27/20 Unknown History Levothyroxine Sodium 75 mcg PO DAILY 05/27/20 05/27/20 Unknown History Losartan Potassium 50 mg PO DAILY 05/27/20 05/27/20 Unknown History Memantine HCl 10 mg PO BID 05/27/20 05/27/20 Unknown History Mirtazapine 7.5 mg PO HS 05/27/20 05/27/20 Unknown History Multivitamin 1 tab PO DAILY 05/27/20 05/27/20 Unknown History Pravastatin Sodium 20 mg PO QHS 05/27/20 05/27/20 Unknown History Melatonin [Melatonin 5MG TAB] 5 mg PO QHS PRN #30 tablet 06/02/20 Unknown Rx [place]-3 Fatty Acids/Fish Oil [Fish 2,000 mg PO BID #120 capsule 06/02/20 Unknown Rx Oil] QUEtiapine [SEROquel] 100 mg PO BID #60 tablet 06/02/20 Unknown Rx VALPROIC ACID Liq [DepaKENE Liq] 250 mg PO TID #1 oral.liqd 06/02/20 Unknown Rx traZODone [Desyrel] 50 mg PO QHS #30 tablet 06/02/20 Unknown Rx Active Meds: Active Medications Alprazolam (Xanax) 0.25 mg PO BID PRN PRN Reason: Anxiety Last Admin: 05/29/20 17:16 Dose: 0.25 mg Documented by: Donepezil HCl (Aricept) 10 mg PO DAILY [facility] Last Admin: 06/04/20 11:22 Dose: 10 mg Documented by: Ferrous Sulfate (Feosol) 325 mg PO DAILY [facility] Last Admin: 06/04/20 11:23 Dose: 325 mg Documented by: Fish Oil (Fish Oil) 2,000 mg PO BID [facility] Last Admin: 06/04/20 21:20 Dose: 2,000 mg Documented by: Glyburide (Diabeta) 10 mg PO BIDDIAB [facility] Last Admin: 06/04/20 17:08 Dose: 10 mg Documented by: Insulin Glargine (Lantus) 6 units SUB-Q QAMDIAB [facility] Last Admin: 06/04/20 11:19 Dose: 6 units Documented by: Levothyroxine Sodium (Synthroid) 50 mcg PO DAILY@0600 [facility] Last Admin: 06/05/20 06:41 Dose: 50 mcg Documented by: Losartan Potassium (Cozaar) 25 mg PO QDAY [facility] Last Admin: 06/04/20 11:22 Dose: 25 mg Documented by: Melatonin (Melatonin) 5 mg PO QHS PRN PRN Reason: Sleep Last Admin: 05/26/20 21:25 Dose: 5 mg Documented by: Memantine (Memantine) 10 mg PO Q12HR [facility] Last Admin: 06/04/20 21:20 Dose: 10 mg Documented by: Multivitamins (Theragran Tab) 1 each PO DAILY [facility] Last Admin: 06/04/20 11:32 Dose: 1 each Documented by: Pravastatin Sodium (Pravachol) 20 mg PO QHS [facility] Last Admin: 06/04/20 21:20 Dose: 20 mg Documented by: Quetiapine Fumarate (Seroquel) 100 mg PO BID [facility] Last Admin: 06/04/20 21:20 Dose: 100 mg Documented by: Trazodone HCl (Desyrel) 50 mg PO QHS [facility] Last Admin: 06/04/20 21:19 Dose: 50 mg Documented by: Valproic Acid (Depakene Liq) 500 mg PO BID [facility] Last Admin: 06/04/20 21:19 Dose: 500 mg Documented by: Results - Results Labs/Vitals: Laboratory Last Values WBC 6.8 K/mm3 (4.5-11.0) 06/02/20 10:55 RBC 4.51 M/mm3 (3.65-5.03) 06/02/20 10:55 Hgb 14.4 gm/dl (10.1-14.3) H 06/02/20 10:55 Hct 42.3 % (30.3-42.9) 06/02/20 10:55 MCV 94 fl (79-97) 06/02/20 10:55 MCH 32 pg (28-32) 06/02/20 10:55 MCHC 34 % (30-34) 06/02/20 10:55 RDW 13.3 % (13.2-15.2) 06/02/20 10:55 Plt Count 220 K/mm3 (140-440) 06/02/20 10:55 Lymph % (Auto) 27.0 % (13.4-35.0) 06/02/20 10:55 [place] % (Auto) 6.5 % (0.0-7.3) 06/02/20 10:55 Eos % (Auto) 0.0 % (0.0-4.3) 06/02/20 10:55 Baso % (Auto) 0.3 % (0.0-1.8) 06/02/20 10:55 Lymph # 1.8 K/mm3 (1.2-5.4) 06/02/20 10:55 [place] # 0.4 K/mm3 (0.0-0.8) 06/02/20 10:55 Eos # 0.0 K/mm3 (0.0-0.4) 06/02/20 10:55 Baso # 0.0 K/mm3 (0.0-0.1) 06/02/20 10:55 Seg Neutrophils % 66.2 % (40.0-70.0) 06/02/20 10:55 Seg Neutrophils # 4.5 K/mm3 (1.8-7.7) 06/02/20 10:55 Sodium 140 mmol/L (137-145) 06/02/20 10:55 Potassium 3.9 mmol/L (3.6-5.0) 06/02/20 10:55 Chloride 99.7 mmol/L (98-107) 06/02/20 10:55 Carbon Dioxide 28 mmol/L (22-30) 06/02/20 10:55 Anion Gap 16 mmol/L 06/02/20 10:55 BUN 11 mg/dL (7-17) 06/02/20 10:55 Creatinine 0.6 mg/dL (0.6-1.2) 06/02/20 10:55 Estimated GFR > 60 ml/min 06/02/20 10:55 BUN/Creatinine Ratio 18 % 06/02/20 10:55 Glucose 195 mg/dL (65-100) H 06/02/20 10:55 POC Glucose 98 (70-105) 06/05/20 06:51 Hemoglobin A1c 8.1 % (4-6) H 05/26/20 20:52 Calcium 9.5 mg/dL (8.4-10.2) 06/02/20 10:55 Total Bilirubin 0.60 mg/dL (0.1-1.2) 06/02/20 10:55 AST 22 units/L (5-40) 06/02/20 10:55 ALT 10 units/L (7-56) 06/02/20 10:55 Alkaline Phosphatase 115 units/L (35-129) 06/02/20 10:55 Total Protein 6.3 g/dL (6.3-8.2) 06/02/20 10:55 Albumin 3.6 g/dL (3.9-5) L 06/02/20 10:55 Albumin/Globulin Ratio 1.3 % 06/02/20 10:55 Triglycerides 81 mg/dL (2-149) 05/26/20 20:52 Cholesterol 135 mg/dL (50-199) 05/26/20 20:52 LDL Cholesterol Direct 69 mg/dL (50-130) 05/26/20 20:52 HDL Cholesterol 62 mg/dL (40-59) H 05/26/20 20:52 Cholesterol/HDL Ratio 2.17 % 05/26/20 20:52 TSH 3.470 mlU/mL (0.270-4.200) 05/26/20 20:52 Urine Color Yellow (Yellow) 06/02/20 06:50 Urine Turbidity Clear (Clear) 06/02/20 06:50 Urine pH 5.0 (5.0-7.0) 06/02/20 06:50 Ur Specific [place] 1.016 (1.003-1.030) 06/02/20 06:50 Urine Protein <15 mg/dl mg/dL (Negative) 06/02/20 06:50 Urine Glucose (UA) Neg mg/dL (Negative) 06/02/20 06:50 Urine Ketones 20 mg/dL (Negative) 06/02/20 06:50 Urine Blood Neg (Negative) 06/02/20 06:50 Urine Nitrite Neg (Negative) 06/02/20 06:50 Urine Bilirubin Neg (Negative) 06/02/20 06:50 Urine Urobilinogen 2.0 mg/dL (<2.0) 06/02/20 06:50 Ur Leukocyte Esterase Tr (Negative) 06/02/20 06:50 Urine WBC (Auto) 5.0 /HPF (0.0-6.0) 06/02/20 06:50 Urine RBC (Auto) 2.0 /HPF (0.0-6.0) 06/02/20 06:50 U Epithel Cells (Auto) 1.0 /HPF (0-13.0) 06/02/20 06:50 Hyaline Casts 1 /LPF 06/02/20 06:50 Urine Mucus 1+ /HPF 06/02/20 06:50 Valproic Acid 52.6 ug/mL (50-100) 05/29/20 18:52 Coronavirus (PCR) Negative (Negative) 06/04/20 Unknown Last Vital Signs Temp 98.7 F 06/04/20 20:58 Pulse 77 06/04/20 20:58 Resp 18 06/04/20 20:58 BP 127/70 06/04/20 20:58 Pulse Ox 98 06/04/20 20:58
--- NOTE | 2020-06-05 09:28 | Discharge Summary ---
Providers - Providers Date of Admission: 05/26/20 20:40 Date of discharge: 06/05/20 Attending physician: PEYTON HUITRON MD 05/26/20 15:56 Consult to Physician [CONS] Routine Comment: Consulting Provider: QUINTIN FOSTRE Physician Instructions: Reason For Exam: medical mnagement 05/31/20 08:25 Physical Therapy Evaluation and Treat [CONS] Routine Comment: Reason For Exam: assess strength and abilities 05/31/20 08:26 Occupational Therapy Evaluate and Treat [CONS] Routine Comment: Reason For Exam: assess abilities Primary care physician: OPERATIONS PROFESSIONAL Hospitalization Reason for admission: aggression, agitation Admitting Diagnosis: F02.81 - DEMENTIA IN OTH DISEASES CLASSD ELSWHR W BEHAVIORAL DISTURB Condition: Stable Hospital course: The patient was provided inpatient psychiatric treatment with safe and supportive care, medication adjustment, adverse effect monitoring, medical evaluations, medical treatments, assessment and psycho-education. The patient's mood, cognition, behavior, moral support are improved and stabilized. St the time of discharge, the patient had no endangering behavior and no debilitating adverse effects. The patient agreed on potential consequences of no treatment and gave informed consent. Disposition: DC-01 TO HOME OR SELFCARE Time spent for discharge: 39 Allergies/Adverse Reactions: Allergies No Known Drug Allergies Allergy (Verified 05/26/20 21:18) Unknown Vital Signs: Last Vital Signs Temp 98.7 F 06/04/20 20:58 Pulse 77 06/04/20 20:58 Resp 18 06/04/20 20:58 BP 127/70 06/04/20 20:58 Pulse Ox 98 06/04/20 20:58 Last Lab: Laboratory Last Values WBC 6.8 K/mm3 (4.5-11.0) 06/02/20 10:55 RBC 4.51 M/mm3 (3.65-5.03) 06/02/20 10:55 Hgb 14.4 gm/dl (10.1-14.3) H 06/02/20 10:55 Hct 42.3 % (30.3-42.9) 06/02/20 10:55 MCV 94 fl (79-97) 06/02/20 10:55 MCH 32 pg (28-32) 06/02/20 10:55 MCHC 34 % (30-34) 06/02/20 10:55 RDW 13.3 % (13.2-15.2) 06/02/20 10:55 Plt Count 220 K/mm3 (140-440) 06/02/20 10:55 Lymph % (Auto) 27.0 % (13.4-35.0) 06/02/20 10:55 [place] % (Auto) 6.5 % (0.0-7.3) 06/02/20 10:55 Eos % (Auto) 0.0 % (0.0-4.3) 06/02/20 10:55 Baso % (Auto) 0.3 % (0.0-1.8) 06/02/20 10:55 Lymph # 1.8 K/mm3 (1.2-5.4) 06/02/20 10:55 [place] # 0.4 K/mm3 (0.0-0.8) 06/02/20 10:55 Eos # 0.0 K/mm3 (0.0-0.4) 06/02/20 10:55 Baso # 0.0 K/mm3 (0.0-0.1) 06/02/20 10:55 Seg Neutrophils % 66.2 % (40.0-70.0) 06/02/20 10:55 Seg Neutrophils # 4.5 K/mm3 (1.8-7.7) 06/02/20 10:55 Sodium 140 mmol/L (137-145) 06/02/20 10:55 Potassium 3.9 mmol/L (3.6-5.0) 06/02/20 10:55 Chloride 99.7 mmol/L (98-107) 06/02/20 10:55 Carbon Dioxide 28 mmol/L (22-30) 06/02/20 10:55 Anion Gap 16 mmol/L 06/02/20 10:55 BUN 11 mg/dL (7-17) 06/02/20 10:55 Creatinine 0.6 mg/dL (0.6-1.2) 06/02/20 10:55 Estimated GFR > 60 ml/min 06/02/20 10:55 BUN/Creatinine Ratio 18 % 06/02/20 10:55 Glucose 195 mg/dL (65-100) H 06/02/20 10:55 POC Glucose 98 (70-105) 06/05/20 06:51 Hemoglobin A1c 8.1 % (4-6) H 05/26/20 20:52 Calcium 9.5 mg/dL (8.4-10.2) 06/02/20 10:55 Total Bilirubin 0.60 mg/dL (0.1-1.2) 06/02/20 10:55 AST 22 units/L (5-40) 06/02/20 10:55 ALT 10 units/L (7-56) 06/02/20 10:55 Alkaline Phosphatase 115 units/L (35-129) 06/02/20 10:55 Total Protein 6.3 g/dL (6.3-8.2) 06/02/20 10:55 Albumin 3.6 g/dL (3.9-5) L 06/02/20 10:55 Albumin/Globulin Ratio 1.3 % 06/02/20 10:55 Triglycerides 81 mg/dL (2-149) 05/26/20 20:52 Cholesterol 135 mg/dL (50-199) 05/26/20 20:52 LDL Cholesterol Direct 69 mg/dL (50-130) 05/26/20 20:52 HDL Cholesterol 62 mg/dL (40-59) H 05/26/20 20:52 Cholesterol/HDL Ratio 2.17 % 05/26/20 20:52 TSH 3.470 mlU/mL (0.270-4.200) 05/26/20 20:52 Urine Color Yellow (Yellow) 06/02/20 06:50 Urine Turbidity Clear (Clear) 06/02/20 06:50 Urine pH 5.0 (5.0-7.0) 06/02/20 06:50 Ur Specific [place] 1.016 (1.003-1.030) 06/02/20 06:50 Urine Protein <15 mg/dl mg/dL (Negative) 06/02/20 06:50 Urine Glucose (UA) Neg mg/dL (Negative) 06/02/20 06:50 Urine Ketones 20 mg/dL (Negative) 06/02/20 06:50 Urine Blood Neg (Negative) 06/02/20 06:50 Urine Nitrite Neg (Negative) 06/02/20 06:50 Urine Bilirubin Neg (Negative) 06/02/20 06:50 Urine Urobilinogen 2.0 mg/dL (<2.0) 06/02/20 06:50 Ur Leukocyte Esterase Tr (Negative) 06/02/20 06:50 Urine WBC (Auto) 5.0 /HPF (0.0-6.0) 06/02/20 06:50 Urine RBC (Auto) 2.0 /HPF (0.0-6.0) 06/02/20 06:50 U Epithel Cells (Auto) 1.0 /HPF (0-13.0) 06/02/20 06:50 Hyaline Casts 1 /LPF 06/02/20 06:50 Urine Mucus 1+ /HPF 06/02/20 06:50 Valproic Acid 52.6 ug/mL (50-100) 05/29/20 18:52 Coronavirus (PCR) Negative (Negative) 06/04/20 Unknown Core Measure Documentation - Palliative Care Palliative Care/ Comfort Measures: Not Applicable - Core Measures Any of the following diagnoses?: none Exam - Constitutional Vitals: Temp Pulse Resp BP Pulse Ox 98.7 F 77 18 127/70 98 06/04/20 20:58 06/04/20 20:58 06/04/20 20:58 06/04/20 20:58 06/04/20 20:58 General appearance: Present: no acute distress - EENT Eyes: Present: PERRL, EOM intact ENT: hearing intact, clear oral mucosa, dentition normal - Neck Neck: Present: supple, normal ROM - Respiratory Respiratory effort: normal Plan Activity: advance as tolerated Weight Bearing Status: Weight Bear as Tolerated Care Plan Goals: Maintain good and stable mental health Plan of Treatment: The patient should be compliant with medications, not to use drugs, and not to drink alcohol. The patient understands that if suicidal ideas, homicidal ideas or any endangering feeling arise, the patient should seek assistance including, but not limited to crisis hotline, and emergency room. Health Concerns: DM, Malnutrition Assessment: Dementia w/Behavioral Disturbance. The patient was calm, cooperative, with no signs of SI/HI or hallucinations verbalized or observed at time of assessment. Follow up with: PRIMARY CARE, [Primary Care Provider] - 7 Days Prescriptions: traZODone [Desyrel] 50 mg PO QHS #30 tablet Melatonin [Melatonin 5MG TAB] 5 mg PO QHS PRN #30 tablet PRN Reason: Sleep VALPROIC ACID Liq [DepaKENE Liq] 250 mg PO TID #1 oral.liqd [place]-3 Fatty Acids/Fish Oil [Fish Oil] 2,000 mg PO BID #120 capsule QUEtiapine [SEROquel] 100 mg PO BID #60 tablet
[2020-06-05 09:45] VITALS: BP 104/63
[2020-06-05] MEDS: VALPROIC ACID 250 MG/5 ML ORAL LIQD PO SCH (09:45)
[2020-06-05] MEDS: DONEPEZIL 10 MG TAB PO SCH (09:45)
[2020-06-05] MEDS: FERROUS SULFATE 325 MG TAB PO SCH (09:46)
[2020-06-05] MEDS: MEMANTINE 10 MG TAB PO SCH (09:46)
[2020-06-05] MEDS: MULTIVITAMINS ,THERAPEUTIC TAB PO SCH (09:46)
[2020-06-05] MEDS: LOSARTAN 25 MG TAB PO SCH (09:47)
[2020-06-05] MEDS: INSULIN GLARGINE 100 UNITS/ML SUB-Q SCH (09:47)
[2020-06-05] MEDS: OMEGA-3 FATTY ACIDS/FISH OIL 1 GRAM CAP PO SCH (09:48)
[2020-06-05] MEDS: QUEtiapine 100 MG TAB PO SCH (09:49)
[2020-06-05] MEDS: glyBURIDE 5 MG TAB PO SCH (10:10)
== END 2020-06-05 10:55 | disposition home or self-care (01) | DRG 884 ==
LOC: UNDOADMIN 14:53 → 3A 14:53 → 5A 20:40
PROVIDERS: ADMIT Psychiatry & Neurology Psychiatry; ATTEND Psychiatry & Neurology Psychiatry
DX: F01.51 Vascular dementia, unspecified severity, with behavioral disturbance (principal); E44.0 Moderate protein-calorie malnutrition; Z68.1 Body mass index [BMI] 19.9 or less, adult; E11.9 Type 2 diabetes mellitus without complications; I10 Essential (primary) hypertension; E03.9 Hypothyroidism, unspecified; E78.5 Hyperlipidemia, unspecified; Z03.818 Encounter for observation for suspected exposure to other biological agents ruled out; Z82.49 Family history of ischemic heart disease and other diseases of the circulatory system; Z79.899 Other long term (current) drug therapy; Z79.4 Long term (current) use of insulin
CPT/HCPCS: 36415; 71045; 80053; 80061; 80164; 81001; 82962; 83036; 84443; 85025; G0378; A9270-GY; J1815; U0003-CS